=== PATIENT | male | born 1960 | race African-American/Black ===

== ENCOUNTER 2019-07-14 11:51 | Emergency (ER) | payer SELFPAY ==
[2019-07-14 13:22] VITALS: BP 142/83; TEMP 98.6; O2SAT 99
--- NOTE | 2019-07-20 13:15 | EDPHYS ---
Physician Documentation [facility] Name: Jorge Ramírez Age: 59 yrs Sex: Male : 1960 Arrival Date: 07/14/2019 Time: 11:54 Bed 8 Private MD: ED Physician Sherif Mendoza HPI: 07/13 12:54 This 59 yrs old Black Male presents to ER via Ambulatory with complaints of Swollen rn Glands, Sore Throat. 12:54 The patient presents with sore throat. The patient describes throat pain as raw. rn 12:55 Onset: The symptoms/episode began/occurred 2 day(s) ago. Severity of symptoms: At their rn worst the symptoms were mild, in the emergency department the symptoms are unchanged. Modifying factors: The symptoms are alleviated by nothing, the symptoms are aggravated by nothing, Patient's oral intake status: good. Associated signs and symptoms: Pertinent negatives cough, fever, flu-like symptoms, rhinorrhea, shortness of breath. The patient has not experienced similar symptoms in the past. The patient has not recently seen a physician. Reports sore throat for 2 days, no fever, no trauma, no trouble with moving neck or swallowing, no runny nose. No sick contacts. No sob or cough.. Historical: - Allergies: 12:06 No Known Allergies; aa5 - Home Meds: 12:06 None [Active]; aa5 - PMHx: 12:06 None; aa5 - Immunization history:: Flu vaccine is not up to date. - Social history:: Smoking status: Patient reports the use of cigarette tobacco products, cigars. - Family history:: not pertinent. - Hospitalizations: : No recent hospitalization is reported. ROS: 12:55 Constitutional: Negative for fever, chills, and weight loss, Eyes: Negative for injury, rn pain, redness, and discharge, ENT: + sore throat Neck: Negative for injury Cardiovascular: Negative for chest pain, palpitations, and edema, Respiratory: Negative for shortness of breath, cough, wheezing, and pleuritic chest pain, Abdomen/GI: Negative for abdominal pain, nausea, vomiting, diarrhea, and constipation, MS/Extremity: Negative for injury and deformity, Neuro: Negative for headache, weakness, numbness, tingling, and seizure. Exam: 12:55 Constitutional: This is a well developed, well nourished patient who is awake, alert, rn and in no acute distress. Head/Face: Normocephalic, atraumatic. Eyes: Pupils equal round and reactive to light, extra-ocular motions intact. Lids and lashes normal. Conjunctiva and sclera are non-icteric and not injected. Cornea within normal limits. Periorbital areas with no swelling, redness, or edema. ENT: MMM, no oral swelling, no stridor Neck: Trachea midline, no crepitus, + bilateral cervical LAD, no meningismus, no pain with extension or flexion of neck Cardiovascular: Regular rate and rhythm. No pulse deficits. Respiratory: No increased work of breathing, no retractions or nasal flaring. Skin: Warm, dry with normal turgor. Normal color with no rashes, no lesions, and no evidence of cellulitis. MS/ Extremity: Pulses equal, no cyanosis. Neurovascular intact. Full, normal range of motion. Equal circumference. Neuro: Awake and alert, GCS 15 Vital Signs: 11:58 BP 142 / 83; Pulse 85; Resp 18 S; Temp 98.6(O); Pulse Ox 99% on R/A; Weight 120.2 kg aa5 (R); Height 5 ft. 8 in. (172.72 cm) (R); Pain 3/10; 13:00 BP 134 / 78; Pulse 81; Resp 18; Temp 98.2; Pulse Ox 99% on R/A; ph 11:58 Body Mass Index 40.29 (120.20 kg, 172.72 cm) aa5 MDM: 12:09 Patient medically screened. rn 12:55 Differential diagnosis: gastroesophageal reflux disease, group A strep tonsillitis, rn influenza, laryngitis, pharyngitis, tonsillitis, upper respiratory infection, viral syndrome. Data reviewed: vital signs, nurses notes, lab test result(s), and as a result, I will discharge patient. Counseling: I had a detailed discussion with the patient and/or guardian regarding: the historical points, exam findings, and any diagnostic results supporting the discharge/admit diagnosis, lab results, the need for outpatient follow up, to return to the emergency department if symptoms worsen or persist or if there are any questions or concerns that arise at home. Special discussion: I discussed with the patient/guardian in detail that at this point there is no indication for admission to the hospital. It is understood, however, that if the symptoms persist or worsen the patient needs to return immediately for re-evaluation. ED course: Neg strep/flu, will dc home with steroids and abx for swelling/lymphadenopathy, no signs of retropharyngeal abscess/meningitis. . 07/13 12:13 Order name: Strep; Complete Time: 12:54 rn 07/13 12:13 Order name: Flu; Complete Time: 12:54 rn 07/13 12:52 Order name: Throat Culture EDMS Administered Medications: No medications were administered Disposition: 07/14/19 13:00 Discharged to Home. Impression: Acute lymphadenitis. - Condition is Stable. - Discharge Instructions: Pharyngitis, Lymphadenopathy. - Prescriptions for Augmentin 875- 125 mg Oral Tablet - take 1 tablet by ORAL route every 12 hours for 10 days; 20 tablet. Medrol (Javier) 4 mg Oral Tablets, Dose Pack - take 1 tablet by ORAL route as directed - follow package instructions; 1 packet. - Medication Reconciliation Form, Thank You Letter, Antibiotic Education, Prescription Opioid Use form. - Follow up: Private Physician; When: As needed; Reason: Recheck today's complaints, Re-evaluation by your physician. - Problem is new. - Symptoms are unchanged. Signatures: Dispatcher [employer] EDMS Sherif Mendoza MD MD rn Calderon, Audri, RN RN aa5 Karrie Morales RN RN ph Corrections: (The following items were deleted from the chart) 13:17 13:00 07/14/2019 13:00 Discharged to Home. Impression: Acute lymphadenitis. Condition ph is Stable. Forms are Medication Reconciliation Form, Thank You Letter, Antibiotic Education, Prescription Opioid Use. Follow up: Private Physician; When: As needed; Reason: Recheck today's complaints, Re-evaluation by your physician. Problem is new. Symptoms are unchanged. rn
--- NOTE | 2019-07-20 13:15 | ER ---
Nurse's Notes [facility] Name: Jorge Ramírez Age: 59 yrs Sex: Male : 1960 Arrival Date: 07/14/2019 Time: 11:54 Bed 8 Private MD: Diagnosis: Acute lymphadenitis Presentation: 07/13 11:58 Chief complaint: Patient states: sore throat x 2 days ago. Denies cough, denies fever. aa5 11:58 Coronavirus screen: Proceed with normal triage. Patient denies a cough. Patient denies aa5 shortness of breath or difficulty breathing. Patient denies measured and/or subjective temperature greater than 100.4F prior to today's visit. Patient denies travel on a cruise ship or to a country the [facility] currently lists as an affected area. Patient denies contact with known and/or suspected case of COVID-19. Ebola Screen: Patient negative for fever greater than or equal to 101.5 degrees Fahrenheit, and additional compatible Ebola Virus Disease symptoms. Initial Sepsis Screen: Does the patient meet any 2 criteria? No. Patient's initial sepsis screen is negative. Does the patient have a suspected source of infection? No. Patient's initial sepsis screen is negative. Risk Assessment: Do you want to hurt yourself or someone else? Patient reports no desire to harm self or others. Onset of symptoms was June 2019. 11:58 Acuity: EDDIE 4 aa5 11:58 Method Of Arrival: Ambulatory aa5 Historical: - Allergies: 12:06 No Known Allergies; aa5 - Home Meds: 12:06 None [Active]; aa5 - PMHx: 12:06 None; aa5 - Immunization history:: Flu vaccine is not up to date. - Social history:: Smoking status: Patient reports the use of cigarette tobacco products, cigars. - Family history:: not pertinent. - Hospitalizations: : No recent hospitalization is reported. Screenin:15 Abuse screen: Denies threats or abuse. Denies injuries from another. Nutritional ph screening: No deficits noted. Tuberculosis screening: No symptoms or risk factors identified. Fall Risk None identified. Assessment: 12:30 General: Appears in no apparent distress. comfortable, well groomed. General: Behavior ph is calm, cooperative, appropriate for age, Denies fever. Pain: Complains of pain in throat. Neuro: Level of Consciousness is awake, alert, obeys commands, Oriented to person, place, time, situation. Cardiovascular: Capillary refill < 3 seconds in bilateral fingers Patient's skin is warm and dry. Respiratory: Airway is patent Respiratory effort is even, unlabored, Respiratory pattern is regular, symmetrical, Breath sounds are clear bilaterally. Denies cough, shortness of breath. GI: No signs and/or symptoms were reported involving the gastrointestinal system. EENT: Throat is reddened has enlarged tonsils Reports pain when swallowing. Derm: Skin is intact, is healthy with good turgor, Skin is pink, warm \T\ dry. Musculoskeletal: Circulation, motion, and sensation intact. Range of motion: intact in all extremities. Vital Signs: 11:58 BP 142 / 83; Pulse 85; Resp 18 S; Temp 98.6(O); Pulse Ox 99% on R/A; Weight 120.2 kg aa5 (R); Height 5 ft. 8 in. (172.72 cm) (R); Pain 3/10; 13:00 BP 134 / 78; Pulse 81; Resp 18; Temp 98.2; Pulse Ox 99% on R/A; ph 11:58 Body Mass Index 40.29 (120.20 kg, 172.72 cm) aa5 ED Course: 11:54 Patient arrived in ED. as 11:58 Arm band placed on Patient placed in an exam room, on a stretcher. aa5 12:06 Triage completed. aa5 12:09 Sherif Mendoza MD is Attending Physician. rn 12:14 Karrie Morales, DANK is Primary Nurse. ph 12:15 Patient has correct armband on for positive identification. Bed in low position. Call ph light in reach. Side rails up X 1. Pulse ox on. NIBP on. Door closed. Noise minimized. Warm blanket given. 13:17 No provider procedures requiring assistance completed. Patient did not have IV access ph during this emergency room visit. Administered Medications: No medications were administered Outcome: 13:00 Discharge ordered by . rn 13:17 Discharged to home ambulatory. ph 13:17 Condition: good 13:17 Discharge instructions given to patient, Instructed on discharge instructions, follow up and referral plans. medication usage, Demonstrated understanding of instructions, follow-up care, medications, Prescriptions given X 2. 13:17 Patient left the ED. ph Signatures: Ana Hooper Roman, MD MD rn Aimee Ellsworth RN RN aa5 Karrie Morales RN RN ph
== END 2019-07-14 13:17 | disposition home or self-care (01) ==
LOC: ER 11:51
DX: L04.9 Acute lymphadenitis, unspecified (principal); Z72.0 Tobacco use
CPT/HCPCS: 87070; 87081; 87804; 99283

== ENCOUNTER 2019-08-23 08:54 | Emergency (ER) | payer SELFPAY ==
[2019-08-23] MEDS ORDERED: dexAMETHasone 10 MG/ML VIAL ONE (09:28)
--- NOTE | 2019-08-23 10:09 | ER ---
Nurse's Notes [facility] Name: Jorge Ramírez Age: 59 yrs Sex: Male : 1960 Arrival Date: 08/23/2019 Time: 08:58 Bed 5 Private MD: Diagnosis: Acute pharyngitis Presentation: 08/22 09:07 Chief complaint: Patient states: knot in throat for about a month and a half. Seen here dm5 previously and given antibiotics and steriods and that seemed to help. Coronavirus screen: Proceed with normal triage. Patient denies a cough. Patient denies shortness of breath or difficulty breathing. Patient denies measured and/or subjective temperature greater than 100.4F prior to today's visit. Patient denies travel on a cruise ship or to a country the [facility] currently lists as an affected area. Patient denies contact with known and/or suspected case of COVID-19. Ebola Screen: Patient negative for fever greater than or equal to 101.5 degrees Fahrenheit, and additional compatible Ebola Virus Disease symptoms Patient denies exposure to infectious person. Patient denies travel to an Ebola-affected area in the 21 days before illness onset. No symptoms or risks identified at this time. Initial Sepsis Screen: Does the patient meet any 2 criteria? No. Patient's initial sepsis screen is negative. Does the patient have a suspected source of infection? Yes: Other: tonsils?. Risk Assessment: Do you want to hurt yourself or someone else? Patient reports no desire to harm self or others. Onset of symptoms was July 2019. 09:07 Method Of Arrival: Ambulatory dm5 09:07 Acuity: EDDIE 4 dm5 Triage Assessment: 09:40 General: Appears in no apparent distress. uncomfortable, Behavior is calm, cooperative. dm5 Pain: Complains of pain in throat Pain currently is 2 out of 10 on a pain scale. Neuro: Level of Consciousness is awake, alert, obeys commands, Oriented to person, place, time. Respiratory: Airway is patent Respiratory effort is even, unlabored. Derm: Skin is pink, warm \T\ dry. Historical: - Allergies: 10:36 No Known Allergies; ph - Immunization history:: Adult Immunizations unknown. - Social history:: Smoking status: unknown. Screenin:35 Abuse screen: Denies threats or abuse. Denies injuries from another. Nutritional ph screening: No deficits noted. Tuberculosis screening: No symptoms or risk factors identified. Fall Risk None identified. Assessment: 09:30 General: Appears in no apparent distress. comfortable, obese, well groomed, Behavior is ph calm, cooperative, appropriate for age, Denies fever. Pain: Complains of pain in throat. Neuro: Level of Consciousness is awake, alert, obeys commands, Oriented to person, place, time, situation. Cardiovascular: Capillary refill < 3 seconds in bilateral fingers Patient's skin is warm and dry. Respiratory: Reports cough that is productive, Airway is patent Respiratory effort is even, unlabored, Respiratory pattern is regular, symmetrical, Denies shortness of breath. GI:. EENT: Reports pain when swallowing. Derm: Skin is intact, is healthy with good turgor, Skin is pink, warm \T\ dry. Musculoskeletal: Circulation, motion, and sensation intact. Range of motion: intact in all extremities. Vital Signs: 09:07 BP 111 / 69; Pulse 95; Resp 18; Temp 97.6; Pulse Ox 97% on R/A; Pain 2/10; dm5 ED Course: 08:58 Patient arrived in ED. fj1 09:01 Waldemar Avalos, ROGER is PHCP. pm1 09:01 Jarocho Fuentes MD is Attending Physician. pm1 09:07 Antonia Prado, RN is Primary Nurse. dm5 09:08 Triage completed. dm5 09:18 Flu Sent. kj1 09:18 Strep Sent. kj1 10:35 No provider procedures requiring assistance completed. Patient did not have IV access ph during this emergency room visit. 10:35 Patient has correct armband on for positive identification. Bed in low position. Call ph light in reach. Side rails up X 1. Pulse ox on. NIBP on. Door closed. Noise minimized. Warm blanket given. 10:36 Arm band placed on. ph Administered Medications: 09:22 Drug: Decadron 10 mg Route: IM; Site: right deltoid; dm5 10:32 Follow up: Response: No adverse reaction ph Outcome: 10:09 Discharge ordered by . pm1 10:36 Discharged to home ambulatory. ph 10:36 Condition: good 10:36 Discharge instructions given to patient, Instructed on discharge instructions, follow up and referral plans. medication usage, Demonstrated understanding of instructions, follow-up care, medications, Prescriptions given X 3. 10:37 Patient left the ED. ph Signatures: Antonia Prado RN RN dm5 Karrie Morales RN RN ph Waldemar Avalos, AIRCRAFT [employer]OL [employer]KER [employer]KER pm1 Hema, Rona kj1 Stan Balderrama fj1
--- NOTE | 2019-08-23 10:09 | EDPHYS ---
Physician Documentation [facility] Name: Jorge Ramírez Age: 59 yrs Sex: Male : 1960 Arrival Date: 08/23/2019 Time: 08:58 Bed 5 Private MD: ED Physician Jarocho Fuentes HPI: 08/22 09:26 This 59 yrs old Black Male presents to ER via Ambulatory with complaints of SWELLING OR pm1 KNOT IN THE THROAT AREA. 09:26 The patient presents with sore throat. The patient describes throat pain as scratchy. pm1 Onset: The symptoms/episode began/occurred 1.5 month(s) ago. Severity of symptoms: in the emergency department the symptoms are unchanged. Modifying factors: The symptoms are alleviated by prescription meds, steroid for the same symptoms in June 2019 improved his symptoms, but once the medications was finished it returned. Associated signs and symptoms: Pertinent negatives chest pain, chills, earache, fever, flu-like symptoms, nausea, shortness of breath, vomiting. The patient has experienced a previous episode, and the symptoms today are exactly the same, Since June 2019. Historical: - Allergies: 10:36 No Known Allergies; ph - Immunization history:: Adult Immunizations unknown. - Social history:: Smoking status: unknown. ROS: 09:26 Constitutional: Negative for fever, chills, and weight loss, Eyes: Negative for injury, pm1 pain, redness, and discharge. 09:26 Neck: Negative for injury, pain, and swelling, Cardiovascular: Negative for chest pain, palpitations, and edema. 09:26 Abdomen/GI: Negative for abdominal pain, nausea, vomiting, diarrhea, and constipation, Back: Negative for injury and pain, : Negative for injury, bleeding, discharge, and swelling, MS/Extremity: Negative for injury and deformity, Skin: Negative for injury, rash, and discoloration, Neuro: Negative for headache, weakness, numbness, tingling, and seizure. 09:26 ENT: Positive for sore throat, Negative for ear pain. 09:26 Respiratory: Positive for cough, Negative for shortness of breath, sputum production, wheezing. Exam: 09:26 Constitutional: This is a well developed, well nourished patient who is awake, alert, pm1 and in no acute distress. Head/Face: Normocephalic, atraumatic. Eyes: Pupils equal round and reactive to light, extra-ocular motions intact. Lids and lashes normal. Conjunctiva and sclera are non-icteric and not injected. Cornea within normal limits. Periorbital areas with no swelling, redness, or edema. 09:26 Neck: Trachea midline, no thyromegaly or masses palpated, and no cervical lymphadenopathy. Supple, full range of motion without nuchal rigidity, or vertebral point tenderness. No Meningismus. Chest/axilla: Normal chest wall appearance and motion. Nontender with no deformity. No lesions are appreciated. 09:26 Back: No spinal tenderness. No costovertebral tenderness. Full range of motion. Skin: Warm, dry with normal turgor. Normal color with no rashes, no lesions, and no evidence of cellulitis. MS/ Extremity: Pulses equal, no cyanosis. Neurovascular intact. Full, normal range of motion. 09:26 ENT: External ear(s): are unremarkable, Ear canal(s): are normal, TM's: are normal, Nose: is normal, Mouth: is normal, Posterior pharynx: Tonsils: bilaterally enlarged, with erythema, no exudate, no ulcerations, erythema, that is mild, peritonsillar mass, is not appreciated, pooling of secretions, is not appreciated. 09:26 Cardiovascular: Exam negative for acute changes, Rate: normal, Rhythm: regular, Pulses: no pulse deficits are appreciated. 09:26 Respiratory: Exam negative for acute changes, respiratory distress, shortness of breath. 09:26 Abdomen/GI: Exam negative for acute changes, Inspection: abdomen appears normal, Palpation: abdomen is soft and non-tender, in all quadrants. 09:26 Neuro: Exam negative for acute changes, Orientation: is normal, Motor: is normal, moves all fours, Sensation: is normal, no obvious gross deficits. Vital Signs: 09:07 BP 111 / 69; Pulse 95; Resp 18; Temp 97.6; Pulse Ox 97% on R/A; Pain 2/10; dm5 MDM: 09:04 Patient medically screened. pm1 09:10 Data reviewed: vital signs. Data interpreted: Pulse oximetry: on room air is 97 %. pm1 Interpretation: normal. 10:08 Counseling: I had a detailed discussion with the patient and/or guardian regarding: the pm1 historical points, exam findings, and any diagnostic results supporting the discharge/admit diagnosis, lab results, the need for outpatient follow up, to return to the emergency department if symptoms worsen or persist or if there are any questions or concerns that arise at home. 10:23 ED course: REGROOVER Aware reviewed. Patient requested a cough medication. pm1 08/22 09:10 Order name: Strep; Complete Time: 10:08 pm1 08/22 09:10 Order name: Flu; Complete Time: 10: pm1 08/22 09:48 Order name: Throat Culture EDMS Administered Medications: 09:22 Drug: Decadron 10 mg Route: IM; Site: right deltoid; dm5 10:32 Follow up: Response: No adverse reaction ph Disposition: 08/23/19 10:09 Discharged to Home. Impression: Acute pharyngitis. - Condition is Stable. - Discharge Instructions: Pharyngitis. - Prescriptions for Augmentin 875- 125 mg Oral Tablet - take 1 tablet by ORAL route every 12 hours for 10 days; 20 tablet. Medrol (Javier) 4 mg Oral Tablets, Dose Pack - take 1 tablet by ORAL route as directed - follow package instructions; 1 packet. Guaifenesin AC 10- 100 mg/5 mL Oral Liquid - take 10 milliliter by ORAL route every 4 hours As needed; 240 milliliter. - Medication Reconciliation Form, Thank You Letter, Antibiotic Education, Prescription Opioid Use form. - Follow up: Emergency Department; When: As needed; Reason: Worsening of condition. Follow up: Private Physician; When: 2 - 3 days; Reason: Recheck today's complaints, Continuance of care, Re-evaluation by your physician. - Problem is new. - Symptoms have improved. Signatures: Dispatcher [employer] [facility] Antonia Prado RN RN dm5 Karrie Morales RN RN ph Waldemar Avalos, ROGER [employer]STRU[employer] pm1 Corrections: (The following items were deleted from the chart) 10:37 10:09 08/23/2019 10:09 Discharged to Home. Impression: Acute pharyngitis. Condition is ph Stable. Forms are Medication Reconciliation Form, Thank You Letter, Antibiotic Education, Prescription Opioid Use. Follow up: Emergency Department; When: As needed; Reason: Worsening of condition. Follow up: Private Physician; When: 2 - 3 days; Reason: Recheck today's complaints, Continuance of care, Re-evaluation by your physician. Problem is new. Symptoms have improved. pm1
[2019-08-23 10:41] VITALS: BP 111/69; TEMP 97.6; O2SAT 97
== END 2019-08-23 10:37 | disposition home or self-care (01) ==
LOC: ER 08:54
DX: J02.9 Acute pharyngitis, unspecified (principal); R05 Cough
CPT/HCPCS: 87070; 87081; 87804; 96372; 99284; J1100

== ENCOUNTER 2019-12-14 12:47 | Emergency (ER) | payer SELFPAY ==
--- OUTSIDE RECORDS SUMMARY | 2019-12-14 12:52 | XMS REPORT | Clinical Summary ---
:1960 Author Organization [facility] Address [address] [place] [address] Care Team Providers Name Role Phone Unavailable Primary Care Provider Unavailable Allergies No Known Allergies Medications Medication Sig Dispensed Refills Start Date End Date Status codeine-guaifenesin Take 5 mLs by 120 mL 0 09/03/201909/12 (GUAIFENESIN AC) mouth every 4 10-100 mg/5 mL liquid (four) hours as needed for Cough for up to 10 days. Max Daily Amount: 30 mLs dexAMETHasone Take 1 tablet 6 tablet 0 09/04/2019 09/10/2019 (DECADRON) 6 MG (6 mg total) by tablet mouth daily for 6 days. sucralfate (CARAFATE) Take 10 mLs (1 420 mL 0 09/03/2019 100 mg/mL suspension g total) by mouth every 6 (six) hours for 30 days. doxycycline (MONODOX) Take 1 capsule 14 capsule 0 09/03/2019 0 09/10/2019 100 MG capsule (100 mg total) by mouth 2 (two) times daily for 7 days. Active Problems Problem Noted Date Pneumonia 08/29/2019 Encounters Date Type Specialty Care Team Description 08/31/2019 Travel 08/29/2019 - Hospital General Internal Jimenez Ferrer MD Pneumonia of both lungs due to infectiou s organism, unspecified part of lung; 09/04/2019 Encounter Medicine Javier Blackburn Acute respira tory distress syndrome (ARDS) due to COVID-19 virus ([facility]); MD Papi ARDS (adult respiratory distress syndrom e) ([facility]); Kali Ni Neck memo n; MD Willard Elevated blood sugar; Erika Lozoya, Acute hy poxemic respiratory failure ([facility]) 08/29/2019 Telephone Critical Care Jimenez Ferrer MD Peer-to-P eer Call Medicine after 12/13/2018 Social History Tobacco Use Types Packs/Day Years Used Date Never Smoker Sex Assigned at Date Recorded Not on file Last Filed Vital Signs Vital Sign Reading Time Taken Comments Blood Pressure 136/86 09/04/2019 8:06 AM CDT Pulse 75 09/04/2019 8:06 AM CDT Temperature 36.3 C (97.3 F) 09/04/2019 5:46 AM CDT Respiratory Rate 18 09/04/2019 8:06 AM CDT Oxygen Saturation 98% 09/04/2019 8:06 AM CDT Inhaled Oxygen Concentration 30% 08/31/2019 12:30 PM CDT Weight 124.5 kg (274 lb 7.6 oz) 09/04/2019 5:46 AM CDT Height 172.7 cm (5' 8") 08/29/2019 8:00 PM CDT Body Mass Index 41.73 08/29/2019 8:00 PM CDT Plan of Treatment Health Maintenance Due Date Last Done Comments COLON CANCER SCREENING COLONOSCOPY 1960 LIPID PANEL 01/29/1995 INFLUENZA VACCINE (#1) 2019 Procedures Procedure Name Priority Date/Time Associated Comments Diagnosis REPORT OF PROCEDURE - 09/07/2019 2:10 ENDOSCOPY SCAN PM CDT RHYTHM STRIP - SCAN 09/07/2019 2:10 PM CDT POCT-GLUCOSE METER Routine 09/03/2019 8:16 Resul ts for this PM CDT procedure are i n the results section. POCT-GLUCOSE METER Routine 09/03/2019 5:31 Resul ts for this PM CDT procedure are i n the results section. SARS-COV2/RT-PCR ([facility] & Routine 09/03/2019 11:30 Results for this REF LABS) AM CDT procedure are i n the results section. POCT-GLUCOSE METER Routine 09/03/2019 11:24 Resul ts for this AM CDT procedure are i n the results section. POCT-GLUCOSE METER Routine 09/03/2019 8:03 Resul ts for this AM CDT procedure are i n the results section. POCT-GLUCOSE METER Routine 09/02/2019 11:05 Resul ts for this PM CDT procedure are i n the results section. POCT-GLUCOSE METER Routine 09/02/2019 4:39 Resul ts for this PM CDT procedure are i n the results section. POCT-GLUCOSE METER Routine 09/02/2019 11:40 Resul ts for this AM CDT procedure are i n the results section. POCT-GLUCOSE METER Routine 09/02/2019 8:06 Resul ts for this AM CDT procedure are i n the results section. (CELLAVISION MANUAL DIFF) Routine 09/02/2019 4:48 Results for this AM CDT procedure are i n the results section. CBC W/PLT COUNT & AUTO Routine 09/02/2019 4:48 R esults for this DIFFERENTIAL AM CDT procedure are i n the results section. COMPREHENSIVE METABOLIC Routine 09/02/2019 4:48 Results for this PANEL AM CDT procedure are i n the results section. CBC W/PLT COUNT & AUTO Routine 09/02/2019 4:48 R esults for this DIFFERENTIAL AM CDT procedure are i n the results section. POCT-GLUCOSE METER Routine 09/01/2019 9:31 Resul ts for this PM CDT procedure are i n the results section. SARS-COV2/RT-PCR ([facility] & Routine 09/01/2019 2:07 Results for this REF LABS) PM CDT procedure are i n the results section. POCT-GLUCOSE METER Routine 09/01/2019 12:10 Resul ts for this PM CDT procedure are i n the results section. POCT-GLUCOSE METER Routine 09/01/2019 8:47 Resul ts for this AM CDT procedure are i n the results section. MAGNESIUM STAT 09/01/2019 6:36 Results for this AM CDT procedure are i n the results section. COMPREHENSIVE METABOLIC Routine 09/01/2019 6:36 Results for this PANEL AM CDT procedure are i n the results section. CBC W/PLT COUNT & AUTO Routine 09/01/2019 5:07 R esults for this DIFFERENTIAL AM CDT procedure are i n the results section. CBC W/PLT COUNT & AUTO Routine 09/01/2019 5:07 R esults for this DIFFERENTIAL AM CDT procedure are i n the results section. POCT-GLUCOSE METER Routine 08/31/2019 10:49 Resul ts for this PM CDT procedure are i n the results section. POCT-GLUCOSE METER Routine 08/31/2019 4:21 Resul ts for this PM CDT procedure are i n the results section. POCT-GLUCOSE METER Routine 08/31/2019 11:14 Resul ts for this AM CDT procedure are i n the results section. POCT-GLUCOSE METER Routine 08/31/2019 8:43 Resul ts for this AM CDT procedure are i n the results section. CBC W/PLT COUNT & AUTO Routine 08/31/2019 3:47 R esults for this DIFFERENTIAL AM CDT procedure are i n the results section. HEMOGLOBIN A1C Routine 08/31/2019 3:47 Results f or this AM CDT procedure are i n the results section. MAGNESIUM STAT 08/31/2019 3:47 Results for this AM CDT procedure are i n the results section. PROCALCITONIN Routine 08/31/2019 3:47 Results fo r this AM CDT procedure are i n the results section. COMPREHENSIVE METABOLIC Routine 08/31/2019 3:47 Results for this PANEL AM CDT procedure are i n the results section. CBC W/PLT COUNT & AUTO Routine 08/31/2019 3:47 R esults for this DIFFERENTIAL AM CDT procedure are i n the results section. C-REACTIVE PROTEIN Routine 08/31/2019 3:47 Resul ts for this AM CDT procedure are i n the results section. PROTHROMBIN TIME/INR Routine 08/31/2019 3:46 Res ults for this AM CDT procedure are i n the results section. FERRITIN Routine 08/31/2019 3:46 Results for this AM CDT procedure are i n the results section. D-DIMER Routine 08/31/2019 3:46 Results for this AM CDT procedure are i n the results section. POCT-GLUCOSE METER Routine 08/30/2019 9:22 Resul ts for this PM CDT procedure are i n the results section. POCT-GLUCOSE METER Routine 08/30/2019 4:49 Resul ts for this PM CDT procedure are i n the results section. 2D ECHO W/ DOPPLER Routine 08/30/2019 11:53 Resul ts for this (CW/PW/COLOR) AM CDT procedure are in the results section. POCT-GLUCOSE METER Routine 08/30/2019 11:28 Resul ts for this AM CDT procedure are i n the results section. SARS-COV2/RT-PCR ([facility] & STAT 08/30/2019 6:58 Results for this REF LABS) AM CDT procedure are i n the results section. URINALYSIS W/ REFLEX URINE STAT 08/30/2019 3:29 Results for this CULTURE AM CDT procedure are i n the results section. LEGIONELLA URINE ANTIGEN Routine 08/30/2019 3:28 Results for this AM CDT procedure are i n the results section. STREP PNEUMONIAE ANTIGEN Routine 08/30/2019 3:28 Results for this AM CDT procedure are i n the results section. (CELLAVISION MANUAL DIFF) Routine 08/30/2019 3:25 Results for this AM CDT procedure are i n the results section. CBC W/PLT COUNT & AUTO Routine 08/30/2019 3:25 R esults for this DIFFERENTIAL AM CDT procedure are i n the results section. BLOOD GAS, ARTERIAL Routine 08/30/2019 3:25 Resu lts for this AM CDT procedure are i n the results section. MAGNESIUM STAT 08/30/2019 3:25 Results for this AM CDT procedure are i n the results section. COMPREHENSIVE METABOLIC Routine 08/30/2019 3:25 Results for this PANEL AM CDT procedure are i n the results section. CBC W/PLT COUNT & AUTO Routine 08/30/2019 3:25 R esults for this DIFFERENTIAL AM CDT procedure are i n the results section. CREATINE KINASE (CK) Routine 08/30/2019 3:25 Res ults for this AM CDT procedure are i n the results section. POCT-GLUCOSE METER Routine 08/29/2019 7:04 Resul ts for this PM CDT procedure are i n the results section. BLOOD CULTURE Routine 08/29/2019 6:05 Results fo r this PM CDT procedure are i n the results section. T4, FREE Routine 08/29/2019 5:51 Results for this PM CDT procedure are i n the results section. B-TYPE NATRIURETIC FACTOR STAT 08/29/2019 5:51 Results for this (BNP) PM CDT procedure are i n the results section. TSH/FREE T4 IF INDICATED Routine 08/29/2019 5:51 Results for this PM CDT procedure are i n the results section. HIV-1 ANTIGEN WITH HIV-1/2 Routine 08/29/2019 5:51 Results for this ANTIBODY PM CDT procedure are i n the results section. BLOOD CULTURE Routine 08/29/2019 5:36 Results fo r this PM CDT procedure are i n the results section. THROMBOELASTOGRAPH (TEG) Routine 08/29/2019 5:35 Results for this PM CDT procedure are i n the results section. (CELLAVISION MANUAL DIFF) Routine 08/29/2019 5:34 Results for this PM CDT procedure are i n the results section. CBC W/PLT COUNT & AUTO Routine 08/29/2019 5:34 R esults for this DIFFERENTIAL PM CDT procedure are i n the results section. MAGNESIUM Add-On 08/29/2019 5:34 Results for this PM CDT procedure are i n the results section. C-REACTIVE PROTEIN Routine 08/29/2019 5:34 Resul ts for this PM CDT procedure are i n the results section. FIBRINOGEN Routine 08/29/2019 5:34 Results for this PM CDT procedure are i n the results section. LACTIC ACID, VENOUS Routine 08/29/2019 5:34 Resu lts for this PM CDT procedure are i n the results section. PROTHROMBIN TIME/INR Routine 08/29/2019 5:34 Res ults for this PM CDT procedure are i n the results section. D-DIMER Routine 08/29/2019 5:34 Results for this PM CDT procedure are i n the results section. TROPONIN I Routine 08/29/2019 5:34 Results for this PM CDT procedure are i n the results section. PROCALCITONIN Routine 08/29/2019 5:34 Results fo r this PM CDT procedure are i n the results section. FERRITIN Routine 08/29/2019 5:34 Results for this PM CDT procedure are i n the results section. LACTATE DEHYDROGENASE Routine 08/29/2019 5:34 Re sults for this (LDH) PM CDT procedure are i n the results section. COMPREHENSIVE METABOLIC Routine 08/29/2019 5:34 Results for this PANEL PM CDT procedure are i n the results section. CBC W/PLT COUNT & AUTO Routine 08/29/2019 5:34 R esults for this DIFFERENTIAL PM CDT procedure are i n the results section. RAPID INFLUENZA A&B SCREEN Routine 08/29/2019 5:17 Results for this PM CDT procedure are i n the results section. RESPIRATORY PANEL [facility] Routine 08/29/2019 5:17 R esults for this PM CDT procedure are i n the results section. SARS-COV2/RT-PCR ([facility] & STAT 08/29/2019 5:17 Results for this REF LABS) PM CDT procedure are i n the results section. XR CHEST 1 VIEW STAT 08/29/2019 5:07 Results for this PORTABLE/BEDSIDE PM CDT procedure a re in the results section. after 12/13/2018 Results EKG-SCANNED (09/07/2019 2:10 PM CDT) Narrative Performed At This result has an attachment that is no t available. RHYTHM STRIP - SCAN (09/07/2019 2:10 PM CDT) Narrative Performed At This result has an attachment that is no t available. POC-Glucose meter (09/03/2019 8:16 PM CDT)Only the most recent of19 results within the time period is included. POC-Glucose Meter 125 (H)Comment: 70 - 110 mg/dL [facility] : TESTED AT [address], [address]: Cyber Operator/Technic ketan ID = [id number] for LAVELLE BAKER Specimen Blood Performing Organization Address City/State/Zipcode Phone Number [address] [phone] CENTER SARS-CoV2/RT-PCR (Symptomatic ONLY) (09/03/2019 11:30 AM CDT)Only the most recent of4 resultswithin the time period is included. Pathologist [facility] SARS-COV2/RT-PCR Negative Not Detected, [facility] Negative [facility] SARS-COV-2 [facility] PERFORMING LAB [facility] Specimen Other - Nasopharyngeal wall structure (b francoise structure) Narrative Performed At Negative results do not preclude SARS-CoV-2 [facility] infection and should not be used as the sole basis for patient management decisions. Negative results must be combined with clinical observations, patient history, and epidemiological information. A false negative result may occur if a specimen is improperly collected, transported or handled. The limit of detection for this assay is 250 copies/mL. This SARS CoV-2 test is a rapid, real-time RT-PCR test intended for the qualitative detection of nucleic acid from SARS-CoV-2 in a nasopharyngeal swab specimen collected from individuals suspected of COVID-19 by their healthcare provider. This test has not been Food and Drug Administration (FDA) cleared or approved and has been authorized by FDA under an Emergency Use Authorization (EUA). This EUA will be effective until the declaration that circumstances exist justifying the authorization of the emergency use of in vitro diagnostic tests for detection and/or diagnosis of COVID-19 is terminated under Section 564(b)(2) of the Act or the EUA is revoked under Section 564(g) of the Act. Fact Sheet for Healthcare Providers: https://www.[employer]/Documents/Xpert%20Xpre ss%20SARS%20CoV-2/Fact%20Sheets/3023802%20SAR S-COV-2%20HEALTHCARE%20PROVIDERS%20FACT%20SHEE T.pdf Fact Sheet for Healthcare Patients: https://www.[employer]/Documents/Xpert%20Xpre ss%20SARS%20CoV-2/Fact%20Sheets/3023801%20SAR S-COV-2%20PATIENT%20FACT%20SHEET.pdf Performing Laboratory: [address] [place] [address] Performing Organization Address City/State/[place] [address] CENTER Manual Differential (09/02/2019 4:48 AM CDT)Only the most recent of3 results within the time period is included. Pathologist Sig nature % Neutros 80 % [facility] % Lymphs 17 % [facility] % Monos 1 % [facility] % Eos 1 % [facility] % Myelo 1 (H) 0 - 0 % [facility] # Neutros 10.96 (H) 1.78 - 5.38 K/ul [facility] # Lymphs 2.33 1.32 - 3.57 K/ul [facility] # Monos 0.14 (L) 0.30 - 0.82 K/uL [facility] # Eos 0.14 0.04 - 0.54 K/uL [facility] # Myelo 0.14 (H) 0.00 - 0.00 K/uL [facility] Total Counted 100 [facility] RBC Morphology Normal [facility] Smudge Cells Present [facility] Giant Platelet Present [facility] Platelet Conc Increased [facility] Specimen Blood Narrative Performed At Cyber Operator ID - Opal Clive [facility] User comments: Slide comments: Performing Organization Address City/State/Zipcode Phone Number [facility] [address] [place] [address] CENTER CBC with platelet count + automated diff (09/02/2019 4:48 AM CDT)Only the most recent of5 resultswithin the time period is included. Pathologist Sig nature WBC 13.7 (H) 3.5 - 10.5 K/L [facility] RBC 4.23 (L) 4.63 - 6.08 M/L [facility] Hemoglobin 11.5 (L) 13.7 - 17.5 GM/DL [facility] Hematocrit 37.7 (L) 40.1 - 51.0 % [facility] MCV 89.1 79.0 - 92.2 fL [facility] MCH 27.2 25.7 - 32.2 pg [facility] MCHC 30.5 (L) 32.3 - 36.5 GM/DL [facility] RDW 13.3 11.6 - 14.4 % [facility] Platelets 503 (H) 150 - 450 K/CU MM [facility] MPV 9.8 9.4 - 12.4 fL [facility] nRBC 0 0 - 0 /100 WBC [facility] Specimen Blood Performing Organization Address City/[facility]/Zipcode Phone Number [facility] [address] [place] [address] CENTER Comprehensive metabolic panel (09/02/2019 4:48 AM CDT)Only the most recent of5 resultswithin the time period is included. Protein, Total 6.6 6.0 - 8.3 [facility] gm/dL [facility] Albumin 3.1 (L) 3.5 - 5.0 [facility] g/dL [facility] Alkaline 57 40 - 150 U/L [facility] Phosphatase [facility] Total Bilirubin 0.3 0.2 - 1.2 [facility] mg/dL [facility] Sodium 141 136 - 145 [facility] meq/L [facility] Potassium 4.3 3.5 - 5.1 [facility] meq/L [facility] Chloride 105 98 - 107 [facility] meq/L [facility] CO2 29 22 - 29 [facility] meq/L [facility] BUN 9 7 - 21 mg/dL [facility] Creatinine 0.75 0.57 - 1.25 [facility] mg/dL [facility] Glucose 112 (H) 70 - 105 [facility] mg/dL [facility] Calcium 9.2 8.4 - 10.2 [facility] mg/dL [facility] AST 52 (H) 5 - 34 U/L [facility] ALT 62 (H) 6 - 55 U/L [facility] EGFR Comment: [facility] CLINICAL DATA TO MEDICAL CENTER CALCULATE ESTIMATED GFR. Specimen Blood Narrative Performed At Cyber Operator ID - NAIF Gunderson [facility] Performing Organization Address City/State/Zipcode Phone Number [facility] [address] [place] [address] CENTER Magnesium (09/01/2019 6:36 AM CDT)Only the most recent of4 resultswithin the time period is included. Pathologist Sig nature Magnesium 2.0 1.6 - 2.6 mg/dL [facility] Specimen Blood Narrative Performed At Cyber Operator ID - NTP [facility] Performing Organization Address [facility] Phone Number [address] [address] [place] Procalcitonin (08/31/2019 3:47 AM CDT)Only the most recent of2 resultswithin the time period is included. Pathologist Sig nature Procalcitonin 0.19 (H) <0.05 ng/mL [facility] Specimen Blood Narrative Performed At SEPSIS RISK (ng/mL) [facility] Low: 0.05-0.50 Intermediate: 0.51-2.00 High: >=2.01 Performing Organization Address [facility] Phone Number [address] [address] CENTER C-Reactive Protein (08/31/2019 3:47 AM CDT)Only the most recent of2 results within the time period is included. Pathologist Sig nature CRP 3.23 (H) 0.00 - 0.50 mg/dL [facility] Specimen Blood Narrative Performed At Cyber Operator ID - PIAYA L [facility] Performing Organization Address City/[facility] Phone Number [address] [address] CENTER Hemoglobin A1c (08/31/2019 3:47 AM CDT) Pathologist Sig nature Hemoglobin A1C 6.4 (H) 4.3 - 6.1 % [facility] Specimen Blood Performing Organization Address [facility] Phone Number [address] [address] CENTER Prothrombin time/INR (08/31/2019 3:46 AM CDT)Only the most recent of2 results within the time period is included. Pathologist Sig nature Protime 15.0 (H) 11.9 - 14.2 seconds [facility] INR 1.2 <=5.9 [facility] Specimen Blood Narrative Performed At Effective 07/16/2018: PT Reference Range [facility] Change New: 11.9-14.2 Previous: 11.7-14.7 RECOMMENDED COUMADIN/WARFARIN INR THERAPY RANGES STANDARD DOSE: 2.0-3.0 Includes: PROPHYLAXIS for venous thrombosis, systemic embolization; TREATMENT for venous thrombosis and/or pulmonary embolus. HIGH RISK: Target INR is 2.5-3.5 for patients wiht mechanical heart valves. Performing Organization Address City/[facility] Phone Number [address] [address] CENTER D-dimer (08/31/2019 3:46 AM CDT)Only the most recent of2 resultswithin the time period is included. Pathologist Sig nature D-Dimer, Quant 2.16 (H) <0.50 MG/L FEU [facility] Specimen Blood Narrative Performed At Intended Use: The D-Dimer Assay can be used [facility] to aid in the diagnosis of Deep Vein Thrombosis (DVT) and Pulmonary Embolism Disease (PED). In patients with low pre-test probability, various studies concerning STA Liatest D-dimer test have reported that with a cutoff value of 0.50 MG/L FEU, the Negative Predictive Value (NPV) regarding the exclusion of thrombosis is within 95-100% range. Performing Organization Address City/[facility]/Zipcode Phone Number [address] [address] CENTER Ferritin (08/31/2019 3:46 AM CDT)Only the most recent of2 resultswithin the time period is included. Pathologist Sig nature Ferritin 408.49 (H) 5.00 - 275.00 ng/mL [facility] Specimen Blood Narrative Performed At Cyber Operator ID - BS [facility] Performing Organization Address City/State/Zipcode Phone Number [facility] [address] [place] [address] CENTER 2D Echo W/Doppler(CW/PW/Color) (08/30/2019 11:53 AM CDT) Pathologist Sig nature Ejection Fraction [facility] ECHO [facility] Specimen Narrative Performed At Transthoracic Echocardiography Report (T TE) [facility] ECHO [facility] Demographics Patient Name JORGE GOMEZ Date of Study 08/30/2019 SOBEIDA Gender Male Visit Number [id number] Race Unknown Room Number 7212 Number Date of 1960 Referring Physician Scott Fraser Age 59 year(s) Home Care Chaplain Octavia Adams [facility] Putty Worker Daphne Buck Interpreting Susi Lopez MD Procedure Type of Study TTE procedure:2DECHO W DOPPLER(CW/PW/COLOR) (Routine) Indications:Shortness of breath. Clinical History Suspected COVID19+, PNA, Acute hypoxic respiratory failure, [place] HGB 12.1 HCT 38.2 % Height: 68 inches Weight: 120.66 kg (266 lbs) BSA: 2.31 m^2 BMI: 40.44 kg/m^2 HR: 76 bpm BP: 140/97 mmHg Summary 1. Noremal LV size and function. Estimated LVEF is normal (55-60%) . All of the LV segments contract normally. 2. Normal RV size and function. 3. Unable to estimate peak systolic PA pressure. 4. No significant valve disease detecte d. Previous Study No prior exam available for comparison. Signature Findings Technical Quality: Good visualization Left Ventricle Limited stud y. The left ventricle is chamber size (by PSLAX dimension) is normal (male - LVIDd 4.2-5.8cm) . Normal LV wall thickness. All of the LV segments contract normally . Global LV systolic function normal . Estimated LVEF by qualitative assessment is normal (55- 60%) . LV endocardium is adequately visualized with IV ultrasound enhancing agent. Left Atrium LA size is normal (16-34 ml/m2) . Right Ventricle The right ventricular chamber size and systolic function are within normal limits. Right Atrium RA cavity size is normal . Aortic Valve AoV thickening primarily involves the right- coronary cups(s). AoV cusp mobility is normal . Mitral Valve Mild MV leaflet thickening. Mild mitral annular calcification. Trace mitral regurgitation. Tricuspid Valve TV structure is normal. Unable to estimate peak systolic PA pressure; inadequate TR velocity signal. A trace of tricuspid regurgitation. Pulmonic Valve PV is not well visualized; function appears normal by Doppler visualized. Aorta Aortic root size (SInus of Valsalva diameter) is norm al . Pericardium No significant pericardial effusion is visualized. IVC/SVC/PA/PV/Pleural The estimated RA pressure by IVC dynamics 5-10mmHg . Chambers/Structures Left Atrium LA Volume: 66.8 ml LA Area: 22.39 cm^2 LA Vol. Index: 29 ml/m^2 Left Ventricle LVIDd: 4.73 cm LVEDV:151.45 m l LV Septum Diastolic: 1.06 cm LV PW Diastolic: 1.03 cm Right Ventricle RVOT VTI: 11.43 cm Aorta Ao Root S of Cecilia.: 3.16 cm Procedure Note Interface, External Ris In - 08/30/2019 5:35 PM CDT Transthoracic Echocardiography Report (TTE) Demographics Patient Name JORGE GOMEZ Date of Study 08/30/2019 SOBEIDA Gender Male Visit Number [id number] Race Unknown Room Num [facility] 7212 Number Date of 1960 John hughes Physician Scott Fraser Age 59 year(s) Sonograp her Octavia Adams RDCS Putty Worker Susi Pompa MD Procedure Type of Study TTE procedure:2DECHO W DOPPLE R(CW/PW/COLOR) (Routine) Indications:Shortness of breath. Clinical History Suspected COVID19+, PNA, Acute hypoxic r espiratory failure, GUADALUPE HGB 12.1 HCT 38.2 % Height: 68 inches Weight: 120.66 kg (266 lbs) BSA: 2.31 m^2 BMI: 40.44 kg/m^2 HR: 76 bpm BP: 140/97 mmHg Summary 1. Noremal LV size and function. Estima aurora LVEF is normal (55-60%) . All of the LV segments contract normally. 2. Normal RV size and function. 3. Unable to estimate peak systolic PA pressure. 4. No significant valve disease detecte d. Previous Study No prior exam available for comparison. Signature Findings Technical Quality: Good visualization Left Ventricle Limited study. The left ventric le is chamber size (by PSLAX dimension) is no rmal (male - LVIDd 4.2-5.8cm) . Normal LV wall t hickness. All of the LV se gments contract normally . Global LV systol ic function normal . Estimated LVEF b y qualitative assessment is normal (55-60%) . LV endocardium i s adequately visualized with IV ultrasound enhan cing agent. Left Atrium LA size is jeanine l (16-34 ml/m2) . Right Ventricle The right ventri cular chamber size and systolic function are wit hin normal limits. Right Atrium RA cavity size i s normal . Aortic Valve AoV thickening p rimarily involves the right- coronary cups(s) . AoV cusp mobilit y is normal . Mitral Valve Mild MV leaflet thickening. Mild mitral charlotte lar calcification. Trace mitral reg urgitation. Tricuspid Valve TV structure is normal. Unable to estima te peak systolic PA pressure; inadequate TR ve locity signal. A trace of tricu spid regurgitation. Pulmonic Valve PV is not well v isualized; function appears normal by Doppler visua lized. Aorta Aortic root size (SInus of Valsalva diameter) is normal . Pericardium No significant p ericardial effusion is visualized. IVC/SVC/PA/PV/Pleural The estimated RA pressure by IVC dynamics 5-10mmHg . Chambers/Structures Left Atrium LA Volume: 66.8 ml LA Area: 22.39 cm^2 LA Vol. Index: 29 ml/m^2 Left Ventricle LVIDd: 4.73 cm LVEDV:151.45 ml LV Septum Diastolic: 1.06 cm LV PW Diastolic: 1.03 cm Right Ventricle RVOT VTI: 11.43 cm Aorta Ao Root S of Cecilia.: 3.16 cm Performing Organization Address City/State/Zipcode Phone Number [facility] Urinalysis w/Microscopic + Reflex to Culture (08/30/2019 3:29 AM CDT) Color, UA Yellow [facility] Clarity, UA Clear [facility] Specific [place], 1.030 1.001 - 1.035 [facility] pH, UA 6.0 5.0 - 8.0 [facility] Protein, UA 200 mg/dL (A) Negative [facility] Glucose, UA Negative Negative [facility] Ketones, UA Trace (A) Negative [facility] Bilirubin, UA Negative Negative [facility] Blood, UA Negative Negative [facility] Nitrite, UA Negative Negative [facility] Leukocytes, UA Negative Negative [facility] Urobilinogen, UA 0.2 0.2 - 1.0 mg/dL [facility] RBC, UA <1 /HPF [facility] WBC, UA 2 /HPF [facility] Mucus Rare [facility] Squam Epithel, UA <1 /HPF [facility] Specimen Source [facility] Specimen Urine - Urine specimen collection, clean catch (procedure) Narrative Performed At Cyber Operator ID - [auto] [facility] Cyber Operator ID - tech Performing Organization Address [facility]/Zipcode Phone Number [address] [address] [place] Strep pneumoniae antigen (08/30/2019 3:28 AM CDT) Strep pneumoniae Presumptive Presumptive [facility] Antigen negative for negative for [facility] pneumococcal pneumococcal [facility] pneumonia - see pneumonia - see comment comment, Presumptive negative for pneumococcal meningitis - see comment Specimen Urine - Urine (substance) Narrative Performed At Presumptive negative for pneumococcal [facility] pneumonia, suggesting no current or recent pneumococcal infection. Infection due to S. pneumoniae cannot be ruled out since the antigen present in the sample may be below the detection limit of the test. Performing Organization Address City/[facility] Phone Number [address] [address] [place] Legionella antigen, urine (08/30/2019 3:28 AM CDT) Legionella Urine Negative - see [facility] Antigen commentComment: [facility] Negative for [facility] pneumophila serogroup 1 antigen, suggesting no recent or current infection with this serogroup. Legionellosis cannot be ruled out since other serogroups and species may cause disease. Specimen Urine Performing Organization Address City/State/Zipcode Phone Number [address] [address] [place] Blood gas, arterial (08/30/2019 3:25 AM CDT) Pathologist Sig nature pH, Arterial 7.46 (H) 7.35 - 7.45 [facility] pCO2, Arterial 36 35 - 45 mmHg [facility] pO2, Arterial 107 (H) 80 - 90 mmHg [facility] O2 Sat, Arterial 98.1 (H) 96.0 - 97.0 % [facility] HCO3, Arterial 25 21 - 29 mmol/L [facility] Base Excess, Arterial 1.6 -2.0 - 3.0 [facility] mmol/L [facility] Patient Temperature 37.5 C [facility] FIO2 50.0 % [facility] Specimen Blood, Arterial Performing Organization Address [facility]y Phone Number [address] [address] [place] Creatine Kinase (CK) (08/30/2019 3:25 AM CDT) Pathologist Sig nature Total CK 63 29 - 200 U/L [facility] Specimen Blood Narrative Performed At Cyber Operator VINNIE Gunderson [facility] Performing Organization Address [facility] Phone Number [address] [address] [place] Blood Culture - Routine (Left Venipuncture) (08/29/2019 6:05 PM CDT)Only the most recent of2 resultswithin the time period is included. Pathologist Sig nature Result No growth in 5 days [facility] Specimen Blood - Entire left upper arm (body stru cture) Performing Organization Address [facility] Phone Number [address] [address] [place] TSH/Free T4 If Indicated (08/29/2019 5:51 PM CDT) Pathologist Sig nature TSH 0.322 (L) 0.350 - 4.940 uIU/mL [facility] Specimen Blood Narrative Performed At Cyber Operator ID - DB [facility] ICAL [place] Performing Organization Address City/[facility]/Zipcode Phone Number [address] [address] [place] HIV-1 Antigen with HIV-1/2 Antibody (08/29/2019 5:51 PM CDT) Pathologist Sig nature HIV-1 Antigen with Nonreactive Nonreactive [facility] HIV 1&2 Antibody [facility] Specimen Blood Narrative Performed At Cyber Operator ID - DB [facility] Performing Organization Address City/[facility] Centercode Phone Number [address] [address] [place] T4, free (08/29/2019 5:51 PM CDT) Pathologist Sig nature Free T4 1.05 0.70 - 1.48 ng/dL [facility] Specimen Blood Narrative Performed At Cyber Operator ID - DB [facility] Performing Organization Address City/[facility] Centercode Phone Number [address] [address] [place] B-type Natriuretic Factor (BNP) (08/29/2019 5:51 PM CDT) Pathologist Sig nature BNP 17 0 - 100 pg/mL [facility] Specimen Blood Narrative Performed At Cyber Operator ID - DANNY M [facility] Performing Organization Address City/State/Zipcode Phone Number [address] [address] [place] Thromboelastograph (TEG) (08/29/2019 5:35 PM CDT) TEG Activated Clotting 4.8 4.0 - 7.0 [facility] Time minutes [facility] TEG Fibrinogen 77.2 (H) 61.0 - 73.0 [facility] Activity degrees [facility] TEG Platelet 81.8 (H) 55.0 - 65.0 MM [facility] Aggregation [facility] TEG Fibrinolysis 0.0 0.0 - 5.0 % [facility] TEG-H Activated 4.8 4.0 - 7.0 [facility] Clotting Time minutes [facility] TEG-H Fibrinogen 80.2 (H) 61.0 - 73.0 [facility] Activity degrees [facility] TEG-H Platelet 86.4 (H) 55.0 - 65.0 MM [facility] Aggregation [facility] TEG-H Fibrinolysis 0.0 0.0 - 5.0 % [facility] Specimen Blood Performing Organization Address City/[facility] Centercode Phone Number [address] [address] [place] Troponin I (08/29/2019 5:34 PM CDT) Pathologist Sig nature Troponin I <0.01 0.00 - 0.03 ng/mL [facility] Specimen Blood Narrative Performed At Troponin I (TnI) levels must be interpreted [facility] in the context of the presenting symptoms and the clinical findings. Elevated TnI levels indicate myocardial damage, but are not specific for ischemic heart disease. Elevated TnI levels are seen in patients with other cardiac conditions (including myocarditis and congestive heart failure), and slight TnI elevations occur in patients with other conditions, including sepsis, renal failure, acidosis, acute neurological disease, and persistent tachyarrhythmia. Cyber Operator ID - DANNY [place] Performing Organization Address City/[facility] Centercode Phone Number [phone] [place] [address] [place] Lactic acid, venous (08/29/2019 5:34 PM CDT) Pathologist Sig nature Lactate, Venous 0.98 0.50 - 2.20 mmol/L [facility] Specimen Blood Narrative Performed At Cyber Operator ID - DANNY Medellin [facility] Performing Organization Address City/State/Zipcode Phone Number [facility] [address] [place] [address] [place] Fibrinogen (08/29/2019 5:34 PM CDT) Pathologist Sig nature Fibrinogen 1,107 (H) 225 - 434 mg/dl [facility] Specimen Blood Performing Organization Address [facility]/[place] Phone Number [address] [address] [place] Lactate dehydrogenase (LDH) (08/29/2019 5:34 PM CDT) Pathologist Sig nature LDH 359 (H) 125 - 220 U/L [facility] Specimen Blood Narrative Performed At Cyber Operator VINNIE Lockwood DANNY Medellin [facility] Performing Organization Address City/[facility] Phone Number [address] [address] [place] Respiratory Panel [facility] (08/29/2019 5:17 PM CDT) Human Metapneumovirus Not detected Not detected, [facility] Rhinovirus Not detected Not detected, [facility] Influenza A Not detected Not detected, [facility] INFLUENZA A (NO [facility] SUBTYPE) [facility] Influenza A subtype H1 [facility] Influenza A Subtype H3 [facility] Influenza A Subtype [facility] H1-2009 [facility] Influenza B Not detected Not detected, [facility] Respiratory Syncytial Not detected Not detected, [facility] Virus [facility] Parainfluenza Virus 1 Not detected Not detected, [facility] Parainfluenza Virus 2 Not detected Not detected, [facility] Parainfluenza virus 3 Not detected Not detected, [facility] Parainfluenza Virus 4 Not detected Not detected, [facility] Adenovirus Not detected Not detected, [facility] Coronavirus 229E Not detected Not detected, [facility] Coronavirus HKU1 Not detected Not detected, [facility] Coronavirus NL63 Not detected Not detected, [facility] Coronavirus OC43 Not detected Not detected, [facility] Bordetella Pertussis Not detected Not detected, [facility] Chlamydophila Not detected Not detected, [facility] Pneumoniae [facility] Mycoplasma Pneumoniae Not detected Not detected, [facility] Specimen Nasopharyngeal - Nasopharyngeal wall str ucture (body structure) Narrative Performed At Other viruses and bacteria not targeted by [facility] this PCR panel cannot be excluded; therefore clinical correlation and follow up of serology, culture results, and other molecular studies is required. The results are not intended to be used as the sole means for clinical diagnosis or patient management decisions. This sample was tested at the [facility] Molecular Diagnostics Laboratory using the [employer] FilmArray Respiratory Panel. It is FDA cleared and has been verified and approved by the [facility] Molecular Diagnostics Laboratory for clinical use on nasopharyngeal swab specimens. The performance of the FilmArray RP has not been established in individuals who received influenza vaccine. Recent administration of a nasal influenza vaccine may cause false positive results for Influenza A and/or Influenza B. Performing Organization Address City/[facility] Centercode Phone Number [address] [address] [place] Rapid Influenza A&B Screen (08/29/2019 5:17 PM CDT) Rapid Influenza A Negative Negative, [facility] Antigen Inconclusive [facility] Rapid influenza B Negative Negative, [facility] Antigen Inconclusive [facility] Specimen Nasal - Nasopharyngeal wall structure (b francoise structure) Performing Organization Address [facility]/Zipcode Phone Number [phone] [place] [address] [place] XR chest 1 view portable / bedside (08/29/2019 5:07 PM CDT) Specimen Narrative Performed At FINAL REPORT GE RIS Chest, one view History: Pneumonia Comparison: none Findings: Bilateral patchy airspace disease, right greater than left. Normal size heart. No pleural effusion or pne umothorax. Impression: Bilateral patchy airspace disease, right greater than left. This is concerning for multifocal pneumonia. Signed: Romeo Fernando MD Report Verified Date/Time: 08/29/2019 17:29:19 Reading Location: [facility] [id number] Consult R eading Room Procedure Note Interface, External Ris In - 08/29/2019 5:31 PM CDT FINAL REPORT Chest, one view History: Pneumonia Comparison: none Findings: Bilateral patchy airspace disease, right greater than left. Normal size heart. No pleural effusion or pneu mothorax. Impression: Bilateral patchy airspace disease, right greater than left. This is concerning for multifocal pneumonia. Signed: Romeo Fernando MD Report Verified Date/Time: 08/29/2019 1 7:29:19 Reading Location: [facility] B1 [id number] Consult R eading Room Performing Organization Address City/State/Zipcode Phone Number GE RIS after 12/13/2018 Insurance Payer Benefit Plan / Subscriber ID Effective Dates Phone Addre ss Type Group CDC REVIEW CDC REVIEW [id number] 2019-[place] [address] [place] [address] Advance Directives For more information, please contact: [phone] Code Status Date Activated Date Inactivated Comments Full Code 08/29/2019 4:42 PM 09/04/2019 1:43 PM This code status was determined by: Patient
--- OUTSIDE RECORDS SUMMARY | 2019-12-14 12:54 | XMS REPORT | Continuity of Care Document ---
:[address] [facility] t Address [address] [place] [address] Care Team Providers Name Role Phone Fercho CARRERA Attending Clinician Marina Toribio MD Attending Clinician Vaughn PAULINO Attending Clinician Papi Blackburn MD Attending Clinician Willard Ni MD Attending Clinician Darell PAULINO, Ariana Attending Clinician VAUGHN Attending Clinician Unavailable VAUGHN Admitting Clinician Unavailable Payers Payer Name Policy Type Policy Number Effective Date Expiration Date S paris [facility] REVIEWCDC [id number] 2019 [facility] [id number] 00:00:00 - [place] [address] Problems Condition Condition Condition Status Onset Resolution Last Treating Co mments Source Name Details Category Date Date Treatment Clinician Date Pneumonia Pneumonia Disease Active [facility] 08-28 [facility] - 00:00: Medical 00 Center Allergies, Adverse Reactions, Alerts This patient has no known allergies or adverse reactions. Social History Social Habit Start Date Stop Date Quantity Comments Source Sex Assigned At [facility] Smoking Status Start Date Stop Date Source Never smoker [facility] Medications Ordered Filled Start Stop Current Ordering Indication Dosage Frequency Signature Comments Components Source Medication Medication Date Date Medication? Clinician (SIG) Name Name dexAMETHaso 2020-0 2020- No 6mg QD Take [address] [facility] 09-03 tablet (6 [facility] - (DECADRON) 00:00: 23:59 mg total) M edical 6 MG tablet 00 :00 by mouth Cent er daily for 6 days. sucralfate 2020- No 1g Take [address] [address] (CARAFATE) 09-02 08-15 mLs (1 g Luke s - 100 mg/mL 00:00: 23:59 total) by Ar dical suspension 00 :00 mouth Center every 6 (six) hours for 30 days. codeine-gua 2019- No 5mL Take [address] [facility] ifenesin 09-02- by mouth [facility] - (GUAIFENESI 00:00: 23:59 every 4 Me dical N AC) 00 :00 (four) Center 10-100 mg/5 hours as mL liquid needed for Cough for up to 10 days. Max Daily Amount: 30 mLs doxycycline No 100mg Q.5D Take [address] (MONODOX) 09-02 capsule [facility] - 100 MG 00:00: 23:59 (100 mg Medical capsule 00 :00 total) by Center mouth 2 (two) times daily for 7 days. Vital Signs Vital Name Observation Time Observation Value Comments Source Systolic blood 2019-09-04 08:06:00 136 mm[Hg] [facility] Diastolic blood 2019-09-04 08:06:00 86 mm[Hg] [facility] Heart rate 2019-09-04 08:06:00 75 /min [facility] Respiratory rate 2019-09-04 08:06:00 18 /min [facility] Oxygen saturation in 2019-09-04 08:06:00 98 /min [facility] Arterial blood by Medical Ce nter Pulse oximetry Body temperature 2019-09-04 05:46:00 36.28 Bhavani [facility] Body weight 2019-09-04 05:46:00 124.5 kg [facility] BMI 2019-09-04 05:46:00 41.73 kg/m2 [facility] Body height 2019-08-29 20:00:00 172.7 cm [facility] Procedures Procedure Date / Time Performing Clinician Source Performed REPORT OF PROCEDURE - 2019-09-07 14:10:37 Provider, Default [facility] ENDOSCOPY SCAN [facility] RHYTHM STRIP - SCAN 2019-09-07 14:10:30 Provider, Default [facility] POCT-GLUCOSE METER 2019-09-03 20:16:00 Erika Lozoya [facility] POCT-GLUCOSE METER 2019-09-03 17:31:00 Erika Lozoya [facility] SARS-COV2/RT-PCR ([facility] & REF 2019-09-03 11:30:00 E[facility] POCT-GLUCOSE METER 2019-09-03 11:24:00 Erika Lozoya [facility] POCT-GLUCOSE METER 2019-09-03 08:03:00 Erika Lozoya [facility] POCT-GLUCOSE METER 2019-09-02 23:05:00 Erika Lozoya [facility] POCT-GLUCOSE METER 2019-09-02 16:39:00 Erika Lozoya [facility] POCT-GLUCOSE METER 2019-09-02 11:40:00 Erika Lozoya [facility] POCT-GLUCOSE METER 2019-09-02 08:06:00 Erika Lozoya [facility] COMPREHENSIVE METABOLIC 2019-09-02 04:48:[address] [facility] CBC W/PLT COUNT & AUTO 2019-09-02 04:48:00 Bal [facility] (CELLAVISION MANUAL DIFF) 2019-09-02 04:48:00 Steffi Selby [facility] POCT-GLUCOSE METER 2019-09-01 21:31:00 Erika Lozoya [facility] SARS-COV2/RT-PCR ([facility] & REF 2019-09-01 14:07:00 Erika Lozoya [facility] POCT-GLUCOSE METER 2019-09-01 12:10:00 Erika Lozoya [facility] POCT-GLUCOSE METER 2019-09-01 08:47:00 Erika Lozoya [facility] COMPREHENSIVE METABOLIC 2019-09-01 06:36:00 Bal [facility] MAGNESIUM 2019-09-01 06:36:00 Bal [facility] CBC W/PLT COUNT & AUTO 2019-09-01 05:07:00 Bal [facility] POCT-GLUCOSE METER 2019-08-31 22:49:00 Erika Lozoya [facility] POCT-GLUCOSE METER 2019-08-31 16:21:00 Kali Ni [facility] POCT-GLUCOSE METER 2019-08-31 11:14:00 [facility] POCT-GLUCOSE METER 2019-08-31 08:43:00 [facility] C-REACTIVE PROTEIN 2019-08-31 03:47:00 Bal [facility] METABOLIC 2019-08-31 03:47:00 Bal [facility] PROCALCITONIN 2019-08-31 03:47:00 Bal [facility] MAGNESIUM 2019-08-31 03:47:00 Bal [facility] HEMOGLOBIN A1C 2019-08-31 03:47:00 Pippa Harris [facility] CBC W/PLT COUNT & AUTO 2019-08-31 03:47:00 [facility] D-DIMER 2019-08-31 03:46:00 Bal [facility] FERRITIN 2019-08-31 03:46:[facility]INR 2019-08-31 03:46:00 [facility] POCT-GLUCOSE METER 2019-08-30 21:22:00 [facility] POCT-GLUCOSE METER 2019-08-30 16:49:00 [facility] 2D ECHO W/ DOPPLER 2019-08-30 11:53:00 David Valera [facility] ukes - (CW/PW/COLOR) [facility] POCT-GLUCOSE METER 2019-08-30 11:28:00 [facility] SARS-COV2/RT-PCR ([facility] & REF 2019-08-30 06:58:00 David Valera [facility] LABS) [facility] URINALYSIS W/ REFLEX URINE 2019-08-30 03:29:00 Steffi Selby [facility] LEGIONELLA URINE ANTIGEN 2019-08-30 03:28:00 Bal [facility] CREATINE KINASE (CK) 2019-08-30 03:25:00 Bal [facility] COMPREHENSIVE METABOLIC 2019-08-30 03:25:00 Bal [facility] MAGNESIUM 2019-08-30 03:25:00 Bal [facility] BLOOD GAS, ARTERIAL 2019-08-30 03:25:00 DannyMahdi Shea chirinos [facility] CBC W/PLT COUNT & AUTO 2019-08-30 03:25:00 Bal Steffi [facility] (CELLAVISION MANUAL DIFF) 2019-08-30 03:25:00 Steffi Selby [facility] POCT-GLUCOSE METER 2019-08-29 19:04:00 Jimenez Ferrer [facility] BLOOD CULTURE 2019-08-29 18:05:00 Bal [facility] HIV-1 ANTIGEN WITH HIV-1/2 2019-08-29 17:51:[address] [facility] TSH/FREE T4 IF INDICATED 2019-08-29 17:51:00 Bal [facility] B-TYPE NATRIURETIC FACTOR 2019-08-29 17:51:00 Bal [facility] (BNP) [facility] T4, FREE 2019-08-29 17:51:00 Bal, [facility] BLOOD CULTURE 2019-08-29 17:36:00 Bal, [facility] THROMBOELASTOGRAPH (TEG) 2019-08-29 17:35:00 Bal [facility] COMPREHENSIVE METABOLIC 2019-08-29 17:34:00 Bal [facility] LACTATE DEHYDROGENASE (LDH) 2019-08-29 17:34:00 Bal [facility] FERRITIN 2019-08-29 17:34:00 Bal, [facility] PROCALCITONIN 2019-08-29 17:34:00 Bal [facility] TROPONIN I 2019-08-29 17:34:00 Bal [facility] D-DIMER 2019-08-29 17:34:00 [facility] PROTHROMBIN TIME/INR 2019-08-29 17:34:00 Bal [facility] LACTIC ACID, VENOUS 2019-08-29 17:34:00 Bal, [facility] FIBRINOGEN 2019-08-29 17:34:00 Bal [facility] C-REACTIVE PROTEIN 2019-08-29 17:34:00 Bal [facility] MAGNESIUM 2019-08-29 17:34:00 Bal [facility] CBC W/PLT COUNT & AUTO 2019-08-29 17:34:00 [facility] (CELLAVISION MANUAL DIFF) 2019-08-29 17:34:00 Bal, [facility] SARS-COV2/RT-PCR ([facility] & REF 2019-08-29 17:17:00 Bal, [facility] RESPIRAT[facility] PANEL [facility] 2019-08-29 17:17:00 Steffi Selby [facility] RAPID INFLUENZA A&B SCREEN 2019-08-29 17:17:00 Steffi Selby [facility] XR CHEST 1 VIEW 2019-08-29 17:07:00 Steffi Selby [facility] - PORTABLE/BEDSIDE [facility] Plan of Care Planned Activity Planned Date Details Comments Source Future Scheduled 2019-10-[address] [facility] - Test 00:00:00 (#1) [code = [facility] INFLUENZA VACCINE (#1)] Future Scheduled 1995-01-29 [facility] (procedure) [code = [facility] 16530199] Future Scheduled [address] - Test 00:00:00 malignant neoplasm Medical C enter of colon (procedure) [code = 397910420] Encounters Start End Encounter Admission Attending Care Care Encounter Source Date/Time Date/Time Type Type Clinicians Facility Department ID 2019-11-19 2019-11-19 Office Fercho CAARSEN [id number] 15:23:44 16:02:25 Visit Slick Chand [id number] Demi [id number] Sangeeta [id number] [address] 2019-10-06 2019-10-06 Office AL Toribio [id number] 08:46:08 09:53:33 Visit Joana AMBULATOR [id number] Marina Kidd [id number] Results Test Description Test Time Test Comments Results Result Comments Source POC-Glucose meter 2019-09-03 20:29:00 Test Item Value Reference Range Interpretation Comme nts POC-Glucose Meter (test code = 125 mg/dL 70-110 H : TESTED AT [facility] [address] [facility] 1538) [facility], [facility] 30: Landscape Manager/Techni devon ID = [id number] for OLIVIA VALDERRAMA Lab Interpretation (test code = Abnormal 21807-5) [facility] [id number] 20:29:00 Test Item Value Reference Range Interpretation Comments POC-GLUCOSE METER 125 mg/dL 70-110 H : TESTED A T [facility] [address] (BEAKER) (test code = TRICIA RAMOS [place], 1538) [address]: Landscape Manager/Techni devon ID = [id number] for LAVELLE HUMPHRIES Blood Culture - Routine (Left Venipuncture)2019-09-03 19:01:00 Test Item Value Reference Range Interpretation Comments Result (test code = No growth in 5 days 6463-4) [facility] [id number] 19:01:00 Test Item Value Reference Range Interpretation Comments CULTURE (BEAKER) (test No growth in 5 days code = 1095) BLOOD [id number] 19:01:00 Test Item Value Reference Range Interpretation Comments CULTURE (BEAKER) (test No growth in 5 days code = 1095) SARS-CoV2/RT-PCR (Symptomatic ONLY)2019-09-03 17:57:00 Test Item Value Reference Range Interpretation Comments SARS-COV2/RT-PCR Negative Not Detected, (test code = Negative 56960-6) SARS-COV-2 [facility] PERFORMING LAB (test code = 38171-1) DONNIE (test code = Negative results do not DONNIE) preclude SARS-CoV-2 infection and should not be used as [...] of the Act. Fact Sheet for Healthcare Providers:https://www.SomethingIndie/Documents/Xper t%20Xpress%20SARS%20CoV- 2/Fact%20Sheets/302-3802 %75JCSK-ZXS-9%20HEALTHCA RE%20PROVIDERS%20FACT%20 SHEET.pdf Fact Sheet for Healthcare Patients:https://www.iKoa/Documents/Xpert %20Xpress%20SARS%20CoV-2 /Fact%20Sheets/302-3801% 77VOZK-DGI-3%20PATIENT%2 0FACT%20SHEET.pdf Performing Laboratory:[facility] [facility] [place] [address] [facility] & REF LABS)2019-09-03 17:57:00 Test Item Value Reference Range Interpretation Comments SARS-COV2/RT-PCR (test code = Negative Not Detected, Negative [id number]) SARS-COV-[address] [facility] (test code = 2375057) Negative results do not preclude SARS-CoV-2 infection and should not be used as the sole basis for patient management decisions. Negative results must be combined with clinical observations, patient history, and epidemiological information. A false negative result may occur if a specimen is improperly collected, transported or handled.The limit of detection for this assay is 250 copies/mL.This SARS CoV-2 test is a rapid, real-time RT-PCR test intended for the qualitative detection of nucleic acid from SARS-CoV-2 in a nasopharyngeal swab specimen collected from individuals suspected of COVID-19 by their healthcare provider.This test has not been Food and Drug [...] is revoked under Section 564(g) of the Act.Fact Sheet for Healthcare Pro viders:https://www.eInstruction by Turning Technologies/Documents/Xpert%20Xpress%20SARS%20CoV-2/Fact%20Sh eets/302-3802%44ZEUZ-RGW-5%20HEALTHCARE%20PROVIDERS%20FACT%20SHEET.pdfFact Sheet for Healthcare Patients:https://www.Nextnav.OpenStudy/Documents/Xpert%20Xpress%20SARS%20CoV-2/Fact%20Sheets/302-3801%20SARS-COV -2%20PATIENT%20FACT%20SHEET.pdfPerforming Laboratory:[facility] [place], [place] [address]AGNY-VBMMTNQ [id number] 17:42:00 Test Item Value Reference Range Interpretation Comments POC-GLUCOSE METER 124 mg/dL 70-110 H : TESTED A T [facility] 67[address] (BEAKER) (test code = [facility], 153) [address]: Landscape Manager/Techni devon ID = [id number] for Kaelyn Maldonado POCT-GLUCOSE [id number] 11:37:00 Test Item Value Reference Range Interpretation Comments POC-GLUCOSE METER 119 mg/dL 70-110 H : TESTED A T [facility] [address] (BEAKER) (test code = [facility], 153) [address]: Landscape Manager/Techni devon ID = [id number] for LO MISHRA POCT-GLUCOSE [id number] 08:20:00 Test Item Value Reference Range Interpretation Comments POC-GLUCOSE METER 112 mg/dL 70-110 H : TESTED A T [facility] [address] (BEAKER) (test code = [facility], 153) [address]: Landscape Manager/Techni devon ID = [id number] for YURI MORROW, LO POCT-GLUCOSE [id number] 23:16:00 Test Item Value Reference Range Interpretation Comments POC-GLUCOSE METER 114 mg/dL 70-110 H : TESTED A T [facility] [address] (BEAKER) (test code = [facility], 153) [address]: Landscape Manager/Techni devon ID = [id number] for ARIANNE SEALS CHARLIE POCT-GLUCOSE [id number] 17:52:00 Test Item Value Reference Range Interpretation Comments POC-GLUCOSE METER 125 mg/dL 70-110 H : TESTED A T [facility] [address] (BEAKER) (test code = [facility], 153) [address]: Landscape Manager/Techni devon ID = [id number] for KAELYN VILLANUEVA POCT-GLUCOSE [id number] 11:54:00 Test Item Value Reference Range Interpretation Comments POC-GLUCOSE METER 107 mg/dL 70-110 : TESTED A T [facility] 67[address] (BEAKER) (test code = [facility], 1538) [address]: Landscape Manager/Techni devon ID = [id number] for JUN ROBIN POCT-GLUCOSE [id number] 08:28:00 Test Item Value Reference Range Interpretation Comments POC-GLUCOSE METER 93 mg/dL 70-110 : TESTED A T [facility] [address] (BEAKER) (test code = [facility], 153) [address]: Landscape Manager/Techni devon ID = [id number] for KAELYN GOMEZ CBC with platelet count + automated [id number] 06:37:00 Test Item Value Reference Range Interpretation Comments WBC (test code = 6690-2) 13.7 3.5- 10.5 K/L H RBC (test code = 789-8) 4.23 4.63- 6.08 M/L L MCHC (test code = 786-4) 30.5 32.3- 36.5 GM/DL L Hematocrit (test code = 4544-3) 37.7 % 40.1-51 L MCV (test code = 787-2) 89.1 fL 79-92.2 MCH (test code = 785-6) 27.2 pg 25.7-32.2 RDW (test code = 788-0) 13.3 % 11.6-14.4 Platelets (test code = 777-3) 503 150- 450 K/CU MM H MPV (test code = 33915-4) 9.8 fL 9.4-12.4 nRBC (test code = 413) 0 0- 0 /100 WBC Lab Interpretation (test code = Abnormal 11675-2) [facility] [id number] 06:37:00 Test Item Value Reference Range Interpretation Comments % Neutros (test code = 80 % 2816) % Lymphs (test code = 17 % 2817) % Monos (test code = 1 % 2818) % Eos (test code = 2819) 1 % % Myelo (test code = 1 % 0-0 H 2822) # Neutros (test code = 10.96 K/ul 1.78-5.38 H 2830) # Lymphs (test code = 2.33 K/ul 1.32-3.57 2831) # Monos (test code = 0.14 K/uL 0.3-0.82 L 2832) # Eos (test code = 2834) 0.14 K/uL 0.04-0.54 # Myelo (test code = 0.14 K/uL 0-0 H 2837) Total Counted (test code 100 = 1351) RBC Morphology (test code Normal = 762) Smudge Cells (test code = Present 1371) Giant Platelet (test code Present = 313) Platelet Conc (test code Increased = 3438) DONNIE (test code = DONNIE) Landscape Manager ID - Opal Quiros comments: Slide comments: Lab Interpretation (test Abnormal code = 05636-4) [facility] W/PLT COUNT & AUTO [id number] 06:37:00 Test Item Value Reference Range Interpretation Comments WHITE BLOOD CELL COUNT (BEAKER) 13.7 K/ L 3.5-10.5 H (test code = 775) RED BLOOD CELL COUNT (BEAKER) 4.23 M/ L 4.63-6.08 L (test code = 761) HEMOGLOBIN (BEAKER) (test code = 11.5 GM/DL 13.7-17.5 L 410) HEMATOCRIT (BEAKER) (test code = 37.7 % 40.1-51.0 L 411) MEAN CORPUSCULAR VOLUME (BEAKER) 89.1 fL 79.0-92.2 (test code = 753) MEAN CORPUSCULAR HEMOGLOBIN 27.2 pg 25.7-32.2 (BEAKER) (test code = 751) MEAN CORPUSCULAR HEMOGLOBIN CONC 30.5 GM/DL 32.3-36.5 L (BEAKER) (test code = 752) RED CELL DISTRIBUTION WIDTH 13.3 % 11.6-14.4 (BEAKER) (test code = 412) PLATELET COUNT (BEAKER) (test 503 K/CU MM 150-450 H code = 756) MEAN PLATELET VOLUME (BEAKER) 9.8 fL 9.4-12.4 (test code = 754) NUCLEATED RED BLOOD CELLS 0 /100 WBC 0-0 (BEAKER) (test code = 413) (CELLAVISION MANUAL DIFF)2019-09-02 06:37:00 Test Item Value Reference Range Interpretation Comments NEUTROPHILS - REL 80 % (CELLAVISION)(BEAKER) (test code = 2816) LYMPHOCYTES - REL 17 % (CELLAVISION)(BEAKER) (test code = 2817) MONOCYTES - REL 1 % (CELLAVISION)(BEAKER) (test code = 2818) EOSINOPHILS - REL 1 % (CELLAVISION)(BEAKER) (test code = 2819) MYELOCYTES - REL 1 % 0-0 H (CELLAVISION)(BEAKER) (test code = 2822) NEUTROPHILS - ABS 10.96 K/ul 1.78-5.38 H (CELLAVISION)(BEAKER) (test code = 2830) LYMPHOCYTES - ABS 2.33 K/ul 1.32-3.57 (CELLAVISION)(BEAKER) (test code = 2831) MONOCYTES - ABS 0.14 K/uL 0.30-0.82 L (CELLAVISION)(BEAKER) (test code = 2832) EOSINOPHILS - ABS 0.14 K/uL 0.04-0.54 (CELLAVISION)(BEAKER) (test code = 2834) MYELOCYTES-ABS 0.14 K/uL 0.00-0.00 H (CELLAVISION)(BEAKER) (test code = 2837) TOTAL COUNTED (BEAKER) (test code 100 = 1351) RBC MORPHOLOGY (BEAKER) (test code Normal = 762) SMUDGE CELLS (BEAKER) (test code = Present 1371) GIANT PLATELETS (BEAKER) (test Present code = 313) PLATELET CONCENTRATION Increased (CELLAVISION)(BEAKER) (test code = 3438) Landscape Manager ID - Opal Quiros comments: Slide comments:Comprehensive metabolic [id number] 05:49:00 Test Item Value Reference Range Interpretation Comments Protein, Total (test 6.6 6.0- 8.3 gm/dL code = 2885-2) Albumin (test code = 3.1 g/dL 3.5-5 L 51621-8) Alkaline Phosphatase 57 U/L 40-150 (test code = 6768-6) Total Bilirubin (test 0.3 mg/dL 0.2-1.2 code = 1974-2) Sodium (test code = 141 meq/L 386-964 0274-2) Potassium (test code 4.3 meq/L 3.5-5.1 = 2823-3) Chloride (test code = 105 meq/L 98-107 2074-0) CO2 (test code = 29 meq/L 22-29 2027-9) BUN (test code = 9 mg/dL 7- 3094-0) Creatinine (test code 0.75 mg/dL 0.57-1.25 = 2160-0) Glucose (test code = 112 mg/dL 70-105 H 2345-7) Calcium (test code = 9.2 mg/dL 8.4-10.2 74757-3) AST (test code = 52 U/L 5-34 H 1920-8) ALT (test code = 62 U/L 6-55 H 1742-6) EGFR (test code = [place] [address]-0) CLINICAL DATA T O CALCULATE ESTIMATED GFR. DONNIE (test code = DONNIE) Landscape Manager ID - PIAYA L Lab Interpretation Abnormal (test code = 62589-2) [facility] [id number] 05:49:00 Test Item Value Reference Range Interpretation Comments TOTAL PROTEIN 6.6 gm/dL 6.0-8.3 (BEAKER) (test code = 770) ALBUMIN (BEAKER) 3.1 g/dL 3.5-5.0 L (test code = 1145) ALKALINE PHOSPHATASE 57 U/L 40-150 (BEAKER) (test code = 346) BILIRUBIN TOTAL 0.3 mg/dL 0.2-1.2 (BEAKER) (test code = 377) SODIUM (BEAKER) (test 141 meq/L 136-145 code = 381) POTASSIUM (BEAKER) 4.3 meq/L 3.5-5.1 (test code = 379) CHLORIDE (BEAKER) 105 meq/L 98-107 (test code = 382) CO2 (BEAKER) (test 29 meq/L code = 355) BLOOD UREA NITROGEN 9 mg/dL 7-21 (BEAKER) (test code = 354) CREATININE (BEAKER) 0.75 mg/dL 0.57-1.25 (test code = 358) GLUCOSE RANDOM 112 mg/dL 70-105 H (BEAKER) (test code = 652) CALCIUM (BEAKER) 9.2 mg/dL 8.4-10.2 (test code = 697) AST (SGOT) (BEAKER) 52 U/L 5-34 H (test code = 353) ALT (SGPT) (BEAKER) 62 U/L 6-55 H (test code = 347) EGFR (BEAKER) (test INSUFFIC IENT CLINICAL code = 1092) DATA TO CALCULA TE ESTIMATED GFR. Landscape Manager ID - PIAYA LSARS-COV2/RT-PCR ([facility])2019-09-01 23:35:00 Test Item Value Reference Range Interpretation Comments SARS-COV2/RT-PCR (test code = Negative Not Detected, Negative 1804523) SARS-COV-[address] [facility] (test code = 9543250) Negative result for this test determines that SARS-CoV-2 RNA was not present in the specimen above the Limit of Detection (LOD). However, Negative results do not preclude SARS-CoV-2 infection and should not be used as the sole basis for treatment or patient management decisions. Negative results mustbe combined with clinical observations, patient history, and epidemiological information. A false negative result may occur if a specimen is improperly collected, transported or handled. A false negative result should be considered if patient's recent exposures or clinical presentation indicate that COVID-19 (SARS-CoV-2) is likely and diagnostic tests for other causes of illness are negative. Re-testing should be considered in cases of suspected false negatives.The limit of detection for this assay is 800 copies/mL.This SARS CoV-2 test is a real-time RT-PCR test intended for the qualitative detection of nucleic acid from SARS-CoV-2 in a nasopharyngeal swab specimen collected from individuals susp ected of COVID-19 by their healthcare provider.This test has not been Food and Drug Administration (FDA) cleared or approved. This is a modified version of an approved Emergency Use Authorization (EUA) and is in the process of review by the FDA. Once authorized by the FDA, the issued EUA will be effective until the declaration that circumstances exist justifying the authorization of the emergency use of in vitro diagnostic tests for detection and/or diagnosis of COVID-19 is terminated under Section 564(b)(2) of the Act or the EUA is revoked under Section 564(g) of the Act.Fact Sheet for Healthcare Providers:https://www.Drop 'til you Shop/sites/default/files/product/documents/Fact_Shee e_LK_Ounwrkvlb_Fjgu_IEDB-QrS-4.pdfFact Sheet for Healthcare Patients:https://www.Drop 'til you Shop/sites/default/files/product/ documents/Adfw_Oridg_Gzjbznor_Ivah_WMEN-GlH-8.pdfPerforming Laboratory:[place] [address], [place] [address]FTWD-AUMYAUT METER 2019-09-01 21:42:00 Test Item Value Reference Range Interpretation Comments POC-GLUCOSE METER 117 mg/dL 70-110 H : TESTED A T [facility] [address]20 (BEAKER) (test code [facility], = 1538) [address]: Landscape Manager/Techni devon ID = [id number] for ANGELICA TIPTON POCT-GLUCOSE [id number] 12:24:00 Test Item Value Reference Range Interpretation Comments POC-GLUCOSE METER 157 mg/dL 70-110 H : TESTED A T [facility] [address] (BEAKER) (test code = [facility], 1538) [address]: Landscape Manager/Techni devon ID = [id number] for KAELYN VILLANUEVA POCT-GLUCOSE [id number] 08:58:00 Test Item Value Reference Range Interpretation Comments POC-GLUCOSE METER 135 mg/dL 70-110 H : TESTED A T [facility] [address] (BEAKER) (test code = [facility], 1538) [address]: Landscape Manager/Techni devon ID = [id number] for KAELYN VILLANUEVA COMPREHENSIVE METABOLIC [id number] 07:51:00 Test Item Value Reference Range Interpretation Comments TOTAL PROTEIN 6.5 gm/dL 6.0-8.3 (BEAKER) (test code = 770) ALBUMIN (BEAKER) 3.0 g/dL 3.5-5.0 L (test code = 1145) ALKALINE PHOSPHATASE 58 U/L 40-150 (BEAKER) (test code = 346) BILIRUBIN TOTAL 0.4 mg/dL 0.2-1.2 (BEAKER) (test code = 377) SODIUM (BEAKER) (test 140 meq/L 136-145 code = 381) POTASSIUM (BEAKER) 4.9 meq/L 3.5-5.1 (test code = 379) CHLORIDE (BEAKER) 106 meq/L 98-107 (test code = 382) CO2 (BEAKER) (test 29 meq/L 22-29 code = 355) BLOOD UREA NITROGEN 11 mg/dL 7-21 (BEAKER) (test code = 354) CREATININE (BEAKER) 0.80 mg/dL 0.57-1.25 (test code = 358) GLUCOSE RANDOM 154 mg/dL 70-105 H (BEAKER) (test code = 652) CALCIUM (BEAKER) 8.9 mg/dL 8.4-10.2 (test code = 697) AST (SGOT) (BEAKER) 40 U/L 5-34 H (test code = 353) ALT (SGPT) (BEAKER) 48 U/L 6-55 (test code = 347) EGFR (BEAKER) (test INSUFFIC IENT CLINICAL code = 1092) DATA TO CALCULA TE ESTIMATED GFR. Landscape Manager ID - JMPAkvkduiee3720-08-01 07:37:00 Test Item Value Reference Range Interpretation Comments Magnesium (test code = 2.0 mg/dL 1.6-2.6 80933-2) DONNIE (test code = DONNIE) Landscape Manager ID - NTP Lab Interpretation (test Normal code = 85405-4) [facility] 07:37:00 Test Item Value Reference Range Interpretation Comments MAGNESIUM (BEAKER) (test code = 2.0 mg/dL 1.6-2.6 627) Landscape Manager ID - NTPCBC W/PLT COUNT & AUTO [id number] 05:16:00 Test Item Value Reference Range Interpretation Comments WHITE BLOOD CELL COUNT (BEAKER) 9.9 K/ L 3.5-10.5 (test code = 775) RED BLOOD CELL COUNT (BEAKER) 3.98 M/ L 4.63-6.08 L (test code = 761) HEMOGLOBIN (BEAKER) (test code = 11.3 GM/DL 13.7-17.5 L 410) HEMATOCRIT (BEAKER) (test code = 35.4 % 40.1-51.0 L 411) MEAN CORPUSCULAR VOLUME (BEAKER) 88.9 fL 79.0-92.2 (test code = 753) MEAN CORPUSCULAR HEMOGLOBIN 28.4 pg 25.7-32.2 (BEAKER) (test code = 751) MEAN CORPUSCULAR HEMOGLOBIN CONC 31.9 GM/DL 32.3-36.5 L (BEAKER) (test code = 752) RED CELL DISTRIBUTION WIDTH 13.5 % 11.6-14.4 (BEAKER) (test code = 412) PLATELET COUNT (BEAKER) (test 458 K/CU MM 150-450 H code = 756) MEAN PLATELET VOLUME (BEAKER) 9.8 fL 9.4-12.4 (test code = 754) NUCLEATED RED BLOOD CELLS 0 /100 WBC 0-0 (BEAKER) (test code = 413) NEUTROPHILS RELATIVE PERCENT 78 % (BEAKER) (test code = 429) LYMPHOCYTES RELATIVE PERCENT 12 % (BEAKER) (test code = 430) MONOCYTES RELATIVE PERCENT 4 % (BEAKER) (test code = 431) EOSINOPHILS RELATIVE PERCENT 0 % (BEAKER) (test code = 432) BASOPHILS RELATIVE PERCENT 0 % (BEAKER) (test code = 437) NEUTROPHILS ABSOLUTE COUNT 7.73 K/ L 1.78-5.38 H (BEAKER) (test code = 670) LYMPHOCYTES ABSOLUTE COUNT 1.21 K/ L 1.32-3.57 L (BEAKER) (test code = 414) MONOCYTES ABSOLUTE COUNT (BEAKER) 0.42 K/ L 0.30-0.82 (test code = 415) EOSINOPHILS ABSOLUTE COUNT 0.02 K/ L 0.04-0.54 L (BEAKER) (test code = 416) BASOPHILS ABSOLUTE COUNT (BEAKER) 0.02 K/ L 0.01-0.08 (test code = 417) IMMATURE GRANULOCYTES-RELATIVE 5 % 0-1 H PERCENT (BEAKER) (test code = 2801) POCT-GLUCOSE [id number] 23:00:00 Test Item Value Reference Range Interpretation Comments POC-GLUCOSE METER 131 mg/dL 70-110 H : TESTED A T [facility] 6720 (BEAKER) (test code = [facility], 1538) [address]: Landscape Manager/Techni devon ID = [id number] for CASTRO KELLY [id number] 16:36:00 Test Item Value Reference Range Interpretation Comments Ferritin (test code = 408.49 ng/mL 5-275 H 2276-4) DONNIE (test code = DONNIE) Landscape Manager ID - BS Lab Interpretation (test Abnormal code = 09619-4) [facility] campusFERRITIN2020-07-[facility] 16:36:00 Test Item Value Reference Range Interpretation Comments FERRITIN (AKER) (test code = 408.49 ng/mL 5.00-275.00 H 361) Landscape Manager ID - BSPOCT-GLUCOSE [id number] 16:32:00 Test Item Value Reference Range Interpretation Comments POC-GLUCOSE METER 93 mg/dL 70-110 : TESTED A T [facility] 6720 (BEAKER) (test code = [facility], 1538) 565[address]: Landscape Manager/Techni devon ID = [id number] for Reshma Romero (cont ract) POCT-GLUCOSE [id number] 11:26:00 Test Item Value Reference Range Interpretation Comments POC-GLUCOSE METER 172 mg/dL 70-110 H : TESTED A T [facility] 6720 ([facility]) (test code = [facility], 1538) 738[address]: Landscape Manager/Techni devon ID = [id number] for MARISELA KHAN [id number] 10:41:00 Test Item Value Reference Range Interpretation Comments Procalcitonin (test code = 0.19 ng/mL <0.05 H 12212-6) DONNIE (test code = DONNIE) SEPSIS RISK (ng/mL)Low: 0.05-0.50Intermedi ate: 0.51-2.00High: >=2.01 Lab Interpretation (test Abnormal code = 41910-8) [facility] campusPROCALCITONIN2020-07-13 10:41:00 Test Item Value Reference Range Interpretation Comments PROCALCITONIN (BEAKER) (test code 0.19 ng/mL <0.05 H = 3036) SEPSIS RISK (ng/mL)Low: 0.05-0.50Intermediate: 0.51-2.00High: >=2.01POCT-GLUCOSE [id number] 08:54:00 Test Item Value Reference Range Interpretation Comments POC-GLUCOSE METER 120 mg/dL 70-110 H : TESTED [place]ara Hickey [facility] 6720 (BEAKER) (test code [facility], = 1538) [address]: Landscape Manager/Techni devon ID = [id number] for Reshma Romero (cont ract) Hemoglobin [id number] 07:57:00 Test Item Value Reference Range Interpretation Comments Hemoglobin A1C (test code = 4548-4) 6.4 % 4.3-6.1 H Lab Interpretation (test code = Abnormal 13825-1) [facility] campusHEMOGLOBIN [id number] 07:57:00 Test Item Value Reference Range Interpretation Comments HEMOGLOBIN A1C (BEAKER) (test code = 6.4 % 4.3-6.1 H 368) COMPREHENSIVE METABOLIC [id number] 06:00:00 Test Item Value Reference Range Interpretation Comments TOTAL PROTEIN 6.8 gm/dL 6.0-8.3 Specimen sligh tly (BEAKER) (test code = hemoly zed 770) ALBUMIN (BEAKER) 3.1 g/dL 3.5-5.0 L Specimen sl ightly (test code = 1145) hemolyzed ALKALINE PHOSPHATASE 62 U/L 40-150 (BEAKER) (test code = 346) BILIRUBIN TOTAL 0.4 mg/dL 0.2-1.2 Specimen sli ghtly (BEAKER) (test code = hemoly zed 377) SODIUM (BEAKER) (test 141 meq/L 136-145 code = 381) POTASSIUM (BEAKER) 4.5 meq/L 3.5-5.1 Specimen slightly (test code = 379) hemolyzed CHLORIDE (BEAKER) 110 meq/L 98-107 H (test code = 382) CO2 (BEAKER) (test 24 meq/L 22-29 code = 355) BLOOD UREA NITROGEN 13 mg/dL 7-21 (BEAKER) (test code = 354) CREATININE (BEAKER) 0.76 mg/dL 0.57-1.25 Specimen slightly (test code = 358) hemolyzed GLUCOSE RANDOM 145 mg/dL 70-105 H (BEAKER) (test code = 652) CALCIUM (BEAKER) 8.8 mg/dL 8.4-10.2 (test code = 697) AST (SGOT) (BEAKER) 43 U/L 5-34 H Specimen slightly (test code = 353) hemolyzed ALT (SGPT) (BEAKER) 55 U/L 6-55 Specimen slightly (test code = 347) hemolyzed EGFR (BEAKER) (test INSUFFIC IENT CLINICAL code = 1092) DATA TO CALCULA TE ESTIMATED GFR. Landscape Manager VINNIE DISLA LC-Reactive [id number] 05:13:00 Test Item Value Reference Range Interpretation Comments CRP (test code = 676) 3.23 mg/dL 0-0.5 H DONNIE (test code = DONNIE) Landscape Manager VINNIE DISLA L Lab Interpretation (test Abnormal code = 09131-8) [facility]MAGNESIUM2020-07-13 05:13:00 Test Item Value Reference Range Interpretation Comments MAGNESIUM (BEAKER) 2.1 mg/dL 1.6-2.6 Specimen slightly (test code = 627) hemolyzed Landscape Manager VINNIE DISLA LC-REACTIVE [id number] 05:13:00 Test Item Value Reference Range Interpretation Comments C-REACTIVE PROTEIN (BEAKER) (test 3.23 mg/dL 0.00-0.50 H code = 676) Landscape Manager VINNIE DISLA JB-[id number] 04:49:00 Test Item Value Reference Range Interpretation Comments D-Dimer, Quant (test code 2.16 <0.50 MG/L FEU H = 71565-5) DONNIE (test code = DONNIE) Intended Use: The D-Dimer Assay can be used to aid in the diagnosis of Deep Vein Thrombosis (DVT) and Pulmonary Embolism Disease (PED).In patients with low pre-test probability, various studies concerning STA Liatest D-dimer test have reported that with a cutoff value of 0.50 MG/L FEU, the Negative Predictive Value (NPV) regarding the exclusion of thrombosis is within 95-100% range. Lab Interpretation (test Abnormal code = 16776-9) [facility] campusD-[id number] 04:49:00 Test Item Value Reference Range Interpretation Comments D-DIMER QUANTITATIVE (BEAKER) 2.16 MG/L FEU <0.50 H (test code = 671) Intended Use: The D-Dimer Assay can be used to aid in the diagnosis of Deep Vein Thrombosis (DVT) and Pulmonary Embolism Disease (PED).In patients with low pre- test probability, various studies concerning STA Liatest D-dimer test have reported that with a cutoff value of 0.50 MG/L FEU, the Negative Predictive Value (NPV) regarding the exclusion of thrombosis is within 95-100% range. Prothrombin time/[id number] 04:45:00 Test Item Value Reference Range Interpretation Comments Protime (test code = 15.0 11.9- 14.2 H 5902-2) seconds INR (test code = 1.2 <=5.9 6301-6) DONNIE (test code = DONNIE) Effective 07/16/2018: PT Reference Range ChangeNew: 11.9-14.2 Previous: 11.7-14.7 RECOMMENDED COUMADIN/WARFARIN INR THERAPY RANGESSTANDARD DOSE: 2.0-3.0 Includes: PROPHYLAXIS for venous thrombosis, systemic embolization; TREATMENT for venous thrombosis and/or pulmonary embolus.HIGH RISK: Target INR is 2.5-3.5 for patients wiht mechanical heart valves. Lab Interpretation Abnormal (test code = 17329-6) [facility] campusPROTHROMBIN TIME/[id number] 04:45:00 Test Item Value Reference Range Interpretation Comments PROTIME (BEAKER) (test code = 15.0 seconds 11.9-14.2 H 759) INR (BEAKER) (test code = 370) 1.2 <=5.9 Effective 07/16/2018: PT Reference Range ChangeNew: 11.9-14.2 Previous: 11.7- 14.7RECOMMENDED COUMADIN/WARFARIN INR THERAPY RANGESSTANDARD DOSE: 2.0-3.0 Includes: PROPHYLAXIS for venous thrombosis, systemic embolization; TREATMENT for venous thrombosis and/or pulmonary embolus.HIGH RISK: Target INR is2.5-3.5 for patients wiht mechanical heart valves.CBC W/PLT COUNT & AUTO [id number] 04:44:00 Test Item Value Reference Range Interpretation Comments WHITE BLOOD CELL COUNT (BEAKER) 10.9 K/ L 3.5-10.5 H (test code = 775) RED BLOOD CELL COUNT (BEAKER) 4.02 M/ L 4.63-6.08 L (test code = 761) HEMOGLOBIN (BEAKER) (test code = 11.4 GM/DL 13.7-17.5 L 410) HEMATOCRIT (BEAKER) (test code = 35.9 % 40.1-51.0 L 411) MEAN CORPUSCULAR VOLUME (BEAKER) 89.3 fL 79.0-92.2 (test code = 753) MEAN CORPUSCULAR HEMOGLOBIN 28.4 pg 25.7-32.2 (BEAKER) (test code = 751) MEAN CORPUSCULAR HEMOGLOBIN CONC 31.8 GM/DL 32.3-36.5 L (BEAKER) (test code = 752) RED CELL DISTRIBUTION WIDTH 13.6 % 11.6-14.4 (BEAKER) (test code = 412) PLATELET COUNT (BEAKER) (test 485 K/CU MM 150-450 H code = 756) MEAN PLATELET VOLUME (BEAKER) 10.0 fL 9.4-12.4 (test code = 754) NUCLEATED RED BLOOD CELLS 0 /100 WBC 0-0 (BEAKER) (test code = 413) NEUTROPHILS RELATIVE PERCENT 82 % (BEAKER) (test code = 429) LYMPHOCYTES RELATIVE PERCENT 11 % (BEAKER) (test code = 430) MONOCYTES RELATIVE PERCENT 4 % (BEAKER) (test code = 431) EOSINOPHILS RELATIVE PERCENT 0 % (BEAKER) (test code = 432) BASOPHILS RELATIVE PERCENT 0 % (BEAKER) (test code = 437) NEUTROPHILS ABSOLUTE COUNT 8.88 K/ L 1.78-5.38 H (BEAKER) (test code = 670) LYMPHOCYTES ABSOLUTE COUNT 1.18 K/ L 1.32-3.57 L (BEAKER) (test code = 414) MONOCYTES ABSOLUTE COUNT (BEAKER) 0.38 K/ L 0.30-0.82 (test code = 415) EOSINOPHILS ABSOLUTE COUNT 0.01 K/ L 0.04-0.54 L (BEAKER) (test code = 416) BASOPHILS ABSOLUTE COUNT (BEAKER) 0.03 K/ L 0.01-0.08 (test code = 417) IMMATURE GRANULOCYTES-RELATIVE 4 % 0-1 H PERCENT (BEAKER) (test code = 2808) POCT-GLUCOSE [id number] 21:33:00 Test Item Value Reference Range Interpretation Comments POC-GLUCOSE METER 118 mg/dL 70-110 H : TESTED A T [facility] 6720 ([place]) (test code = [place], 1538) [address]: Landscape Manager/Techni devon ID = [id number] for LYNSEY SELF 2D Echo W/Doppler(CW/PW/Color)2019-08-30 17:35:29Ejection FractionSLEH ECHO HEARTLAB MKCKESSON CPACSInterface, External Ris In - 08/30/2019 5:35 PM C DTTransthoracic Echocardiography Report (TTE) Demographics Patient Name HUMBERTO GOMEZ Date of Study 08/30/2019 SOBEIDA Gender Male Visit Number [id number] Race Unknown Room Number 7212 Number Date of 1960 Referring Physician Scott Fraser Age 59 year(s) Outreach Specialist Octavia Adams, [facility] Gas Dispenser Daphne Buck Interpreting Susi Barrera MD Procedure Type of Study TTE procedure:2DECHO W DOPPLER(CW/PW/COLOR) (Routine) Indications:Shortness of br eath.Clinical HistorySuspected COVID19+, PNA, Acute hypoxic respiratory failure, DOEHGB 12.1HCT 38.2%Height: 68 inches Weight: 120.66 kg (266 lbs) BSA: 2.31 m^2 BMI: 40.44kg/m^2HR: 76 bpm BP: 140/97 mmHg Summary 1. Noremal LV size and function. Estimated LVEF is normal (55-60%) . All of the LV segments contract normally. 2. Normal RV size and function. 3. Unable to estimate peak systolic PA pressure. 4. No significant valve disease detected. Previous Study No prior exam available for comparison. Signature Findings Technical Quality: Good visualization Left Ventricle Limited study. The left ventricle is chamber size (by PSLAX dimension) is normal (male - LVIDd 4.2-5.8cm) . Normal LV wall thick ness. All of the LV segments contract normally . Global LV systolic function normal . Estimated LVEF by qualitative assessment is normal (55- 60%) . LV endocardium is adequately visualizedwith IV ultrasound enhancing agent. Left Atrium LA size is normal(16-34 ml/m2) . Right Ventricle The right ventricular chamber size and systolic function are within normal limits. Right Atrium RA cavity size is normal . Aortic Valve AoV thickening primarily involves the right- coronary cups(s). AoV cusp mobility is normal . Mitral Valve Mild MV leaflet thic kening. Mild mitral annular calcification. Trace mitral regurgitation. Tricuspid Valve TV structure is normal. Unable to estimate peak systolic PA pressure; inadequate TR velocity signal. A trace of tricuspid regurgitation. Pulmonic Valve PV is not well visualized; function appears normal by Doppler visualized. Aorta Aortic root size (SInus of Valsalva diameter) is normal . Pericardium No significant pericardial effusion is visualized. IVC/SVC/PA/PV/Pleural The estimated RA pressure by IVC dynamics 5- 10mmHg . Chambers/Structures Left Atrium LA Volume: 66.8 ml LA Area: 22.39 cm^2 LA Vol. Index: 29 ml/m^2 Left Ventricle LVIDd: 4.73 cm LVEDV:151.45 ml LV Septum Diastolic: 1.06 cm LV PW Diastolic: 1.03 cm Right Ventricle RVOT VTI: 11.43 cm Aorta Ao Root S of Cecilia.: 3.16 [facility] [id number] 17:01:00 Test Item Value Reference Range Interpretation Comments POC-GLUCOSE METER 109 mg/dL 70-110 : TESTED A T [facility] 6720 ([place]) (test code = [place], 1538) [address]: Landscape Manager/Techni devon ID = [id number] for AYSHA RODRIGUEZ POCT-GLUCOSE [id number] 11:41:00 Test Item Value Reference Range Interpretation Comments POC-GLUCOSE METER 131 mg/dL 70-110 H : TESTED Sahara T [facility] 6720 (BEAKER) (test code = [place], 1538) [address]: Landscape Manager/Techni devon ID = [id number] for AYSHA RODRIGUEZ CBC W/PLT COUNT & AUTO [id number] 09:58:00 Test Item Value Reference Range Interpretation Comments WHITE BLOOD CELL COUNT (BEAKER) 10.9 K/ L 3.5-10.5 H (test code = 775) RED BLOOD CELL COUNT (BEAKER) 4.39 M/ L 4.63-6.08 L (test code = 761) HEMOGLOBIN (BEAKER) (test code = 12.1 GM/DL 13.7-17.5 L 410) HEMATOCRIT (BEAKER) (test code = 38.2 % 40.1-51.0 L 411) MEAN CORPUSCULAR VOLUME (BEAKER) 87.0 fL 79.0-92.2 (test code = 753) MEAN CORPUSCULAR HEMOGLOBIN 27.6 pg 25.7-32.2 (BEAKER) (test code = 751) MEAN CORPUSCULAR HEMOGLOBIN CONC 31.7 GM/DL 32.3-36.5 L (BEAKER) (test code = 752) RED CELL DISTRIBUTION WIDTH 13.5 % 11.6-14.4 (BEAKER) (test code = 412) PLATELET COUNT (BEAKER) (test 499 K/CU MM 150-450 H code = 756) MEAN PLATELET VOLUME (BEAKER) 9.5 fL 9.4-12.4 (test code = 754) NUCLEATED RED BLOOD CELLS 0 /100 WBC 0-0 (BEAKER) (test code = 413) (CELLAVISION MANUAL DIFF)2019-08-30 09:58:00 Test Item Value Reference Range Interpretation Comments NEUTROPHILS - REL 77 % (CELLAVISION)(BEAKER) (test code = 2816) LYMPHOCYTES - REL 9 % (CELLAVISION)(BEAKER) (test code = 2817) MONOCYTES - REL 6 % (CELLAVISION)(BEAKER) (test code = 2818) METAMYELOCYTES - REL 2 % 0-0 H (CELLAVISION)(BEAKER) (test code = 2821) MYELOCYTES - REL 1 % 0-0 H (CELLAVISION)(BEAKER) (test code = 2822) BANDS - REL (CELLAVISION)(BEAKER) 2 % 0-10 (test code = 2826) ATYPICAL LYMPHOCYTES - REL 2 % 0-0 H (CELLAVISION)(BEAKER) (test code = 2829) NEUTROPHILS - ABS 8.39 K/ul 1.78-5.38 H (CELLAVISION)(BEAKER) (test code = 2830) LYMPHOCYTES - ABS 0.98 K/ul 1.32-3.57 L (CELLAVISION)(BEAKER) (test code = 2831) MONOCYTES - ABS 0.65 K/uL 0.30-0.82 (CELLAVISION)(BEAKER) (test code = 2832) METAMYELOCYTES - ABS 0.22 K/uL 0.00-0.00 H (CELLAVISION)(BEAKER) (test code = 2836) MYELOCYTES-ABS 0.11 K/uL 0.00-0.00 H (CELLAVISION)(BEAKER) (test code = 2837) BANDS - ABS (CELLAVISION)(BEAKER) 0.22 K/uL 0.00-0.80 (test code = 2840) ATYPICAL LYMPHOCYTES - ABS 0.22 K/uL 0.00-0.00 H (CELLAVISION)(BEAKER) (test code = 2858) TOTAL COUNTED (BEAKER) (test code = 100 1351) PLT MORPHOLOGY (BEAKER) (test code Normal = 486) TOXIC GRANULATION (BEAKER) (test Present code = 771) POLYCHROMATOPHILLIC RBCS(BEAKER) 1+ few (test code = 478) HYPOCHROMIA (BEAKER) (test code = 1+ few 963) ARTIFACT (CELLAVISION)(BEAKER) Present (test code = 3432) PLATELET CONCENTRATION Increased (CELLAVISION)(BEAKER) (test code = 3438) Landscape Manager ID - jenny Kern comments: Slide comments:SARS-COV2/RT-PCR ([facility])2019-08-30 08:51:00 Test Item Value Reference Range Interpretation Comments SARS-COV2/RT-PCR (test Not Detected Not Detected, Negative code = 7886559) SARS-COV-[address] [facility] (test code = 4493356) Negative results do not preclude SARS-CoV-2 infection and should not be used as the sole basis for patient management decisions. Negative results must be combined with clinical observations, patient history, and epidemiological information. A false negative result may occur if a specimen is improperly collected, transported or handled.The limit of detection for this assay is 250 copies/mL.This SARS CoV-2 test is a rapid, real-time RT-PCR test intended for the qualitative detection of nucleic acid from SARS-CoV-2 in a nasopharyngeal swab specimen collected from individuals suspected of COVID-19 by their healthcare provider.This test has not been Food and Drug [...] is revoked under Section 564(g) of the Act.Fact Sheet for Healthcare Pro viders:https://www.Yippy.OpenStudy/Documents/Xpert%20Xpress%20SARS%20CoV-2/Fact%20Sh eets/302-3802%86OELC-WDM-1%20HEALTHCARE%20PROVIDERS%20FACT%20SHEET.pdfFact Sheet for Healthcare Patients:https://www.Nextnav.OpenStudy/Documents/Xpert%20Xpress%20SARS%20CoV-2/Fact%20Sheets/302-3801%20SARS-COV -2%20PATIENT%20FACT%20SHEET.pdfPerforming Laboratory:[facility], [place] [address]Whrsoiamqq antigen, [id number] 08:27:00 Test Item Value Reference Range Interpretation Comments Legionella Urine Negative - see Negative for L. Antigen (test code comment pneumophi la = 18943-2) serogroup 1 ant igen, suggesting no r ecent or current infe ction with this serog roup. Legionellosis c annot be ruled out si nce other serogroup s and species may cau se disease. [facility] campusLEGIONELLA ANTIGEN, [id number] 08:27:00 Test Item Value Reference Range Interpretation Comments L. PNEUMOPHILA Negative - see Negative fo r L. SEROGP 1 UR AG comment pneumophila (BEAKER) (test code serogrou p 1 antigen, = 1156) suggesting no r ecent or current infe ction with this serog roup. Legionellosis c annot be ruled out si nce other serogroup s and species may cau se disease. Strep pneumoniae [id number] 08:26:00 Test Item Value Reference Range Interpretation Comments Strep pneumoniae Presumptive negative Presumptive Antigen (test code = [place] 620[address]-7) pneumonia - see pneumococcal comment pneumonia - see comment, Presumptive negative for pneumococcal meningitis DONNIE (test code = DONNIE) Presumptive negative for pneumococcal pneumonia, suggesting no current or recent pneumococcal infection. Infection due to S. pneumoniae cannot be ruled out since the antigen present in the sample may be below the detection limit of the test. Lab Interpretation Normal (test code = 49940-0) [facility] [id number] 08:26:00 Test Item Value Reference Range Interpretation Comments STREP PNEUMONIAE Presumptive negative Presumptive negative ANTIGEN (BEAKER) for pneumococcal for pneumococcal (test code = 1615) pneumonia - see pneumonia - see comment commen Presumptive negative for pneumococcal pneumonia, suggesting no current or recent pneumococcal infection. Infection due to S. pneumoniae cannot be ruled out since the antigen present in the sample may be below the detection limit of the test. Urinalysis w/Microscopic + Reflex to [id number] 07:37:00 Test Item Value Reference Range Interpretation Comments Color, UA (test code = Yellow 5778-6) Clarity, UA (test code = Clear 5767-9) Specific [place], UA (test 1.030 1.001-1.035 code = 5811-5) pH, UA (test code = 6.0 5.0-8.0 5803-2) Protein, UA (test code = 200 mg/dL Negative A 55874-8) Glucose, UA (test code = Negative Negative 365) Ketones, UA (test code = Trace Negative A 2514-8) Bilirubin, UA (test code = Negative Negative 96214-2) Blood, UA (test code = Negative Negative 50609-2) Nitrite, UA (test code = Negative Negative 5802-4) Leukocytes, UA (test code Negative Negative = 5799-2) Urobilinogen, UA (test 0.2 mg/dL 0.2-1 code = 47659-3) RBC, UA (test code = <1 /HPF 37319-1) WBC, UA (test code = 2 /HPF 5821-4) Mucus (test code = 8247-9) Rare Squam Epithel, UA (test <1 /HPF code = 41155-1) Specimen Source (test code = 2795) DONNIE (test code = DONNIE) Landscape Manager ID - [auto]Landscape Manager ID - tech Lab Interpretation (test Abnormal code = 45191-4) [facility]URINALYSIS W/ REFLEX URINE [id number] 07:37:00 Test Item Value Reference Range Interpretation Comments COLOR (BEAKER) (test code = 470) Yellow CLARITY (BEAKER) (test code = 469) Clear SPECIFIC GRAVITY UA (BEAKER) (test 1.030 1.001-1.035 code = 468) PH UA (BEAKER) (test code = 467) 6.0 5.0-8.0 PROTEIN UA (BEAKER) (test code = 200 mg/dL Negative A 464) GLUCOSE UA (BEAKER) (test code = Negative Negative 365) KETONES UA (BEAKER) (test code = Trace Negative A 371) BILIRUBIN UA (BEAKER) (test code = Negative Negative 462) BLOOD UA (BEAKER) (test code = 461) Negative Negative NITRITE UA (BEAKER) (test code = Negative Negative 465) LEUKOCYTE ESTERASE UA (BEAKER) Negative Negative (test code = 466) UROBILINOGEN UA (BEAKER) (test code 0.2 mg/dL 0.2-1.0 = 463) RBC UA (BEAKER) (test code = 519) < /HPF WBC UA (BEAKER) (test code = 520) 2 /HPF MUCUS (BEAKER) (test code = 1574) Rare SQUAMOUS EPITHELIAL (BEAKER) (test < /HPF code = 516) SOURCE(BEAKER) (test code = 2795) Landscape Manager ID - [auto]Landscape Manager ID - techCOMPREHENSIVE METABOLIC [id number] 04:53:00 Test Item Value Reference Range Interpretation Comments TOTAL PROTEIN 7.6 gm/dL 6.0-8.3 (BEAKER) (test code = 770) ALBUMIN (BEAKER) 3.3 g/dL 3.5-5.0 L (test code = 1145) ALKALINE PHOSPHATASE 73 U/L 40-150 (BEAKER) (test code = 346) BILIRUBIN TOTAL 0.4 mg/dL 0.2-1.2 (BEAKER) (test code = 377) SODIUM (BEAKER) (test 142 meq/L 136-145 code = 381) POTASSIUM (BEAKER) 3.9 meq/L 3.5-5.1 (test code = 379) CHLORIDE (BEAKER) 108 meq/L 98-107 H (test code = 382) CO2 (BEAKER) (test 24 meq/L 22-29 code = 355) BLOOD UREA NITROGEN 12 mg/dL 7-21 (BEAKER) (test code = 354) CREATININE (BEAKER) 0.81 mg/dL 0.57-1.25 (test code = 358) GLUCOSE RANDOM 172 mg/dL 70-105 H (BEAKER) (test code = 652) CALCIUM (BEAKER) 9.0 mg/dL 8.4-10.2 (test code = 697) AST (SGOT) (BEAKER) 47 U/L 5-34 H (test code = 353) ALT (SGPT) (BEAKER) 56 U/L 6-55 H (test code = 347) EGFR (BEAKER) (test INSUFFIC IENT CLINICAL code = 1092) DATA TO CALCULA TE ESTIMATED GFR. Landscape Manager ID Fabián DISLA LCreatine Kinase (CK)2019-08-30 04:37:00 Test Item Value Reference Range Interpretation Comments Total CK (test code = 63 U/L 29-200 2157-6) DONNIE (test code = DONNIE) Landscape Manager ID - NAIF L Lab Interpretation (test Normal code = 94989-7) [facility]MAGNESIUM[facility] 04:37:00 Test Item Value Reference Range Interpretation Comments MAGNESIUM (BEAKER) (test code = 2.3 mg/dL 1.6-2.6 627) Landscape Manager ID Fabián DISLA LCREATINE KINASE (CK)2019-08-30 04:37:00 Test Item Value Reference Range Interpretation Comments CREATINE KINASE TOTAL (BEAKER) (test 63 U/L 29-200 code = 380) Landscape Manager ID - NAIF LBlood gas, [id number] 04:35:00 Test Item Value Reference Range Interpretation Comments pH, Arterial (test code = 2744-1) 7.46 7.35-7.45 H pCO2, Arterial (test code = 36 35- 45 mmHg 2019-8) pO2, Arterial (test code = 2703-7) 107 80- 90 mmHg H O2 Sat, Arterial (test code = 98.1 % 96-97 H 2708-6) HCO3, Arterial (test code = 25 mmol/L 21-29 1960-4) Base Excess, Arterial (test code = 1.6 mmol/L -2-3 1925-7) Patient Temperature (test code = 37.5 C 8310-5) FIO2 (test code = 1819) 50 % Lab Interpretation (test code = Abnormal 02429-1) [facility]OOD GAS, [id number] 04:35:00 Test Item Value Reference Range Interpretation Comments PH ARTERIAL (BEAKER) (test code = 7.46 7.35-7.45 H 383) PCO2 ARTERIAL (BEAKER) (test code 36 mmHg 35-45 = 384) PO2 ARTERIAL (BEAKER) (test code = 107 mmHg 80-90 H 385) O2 SATURATION ARTERIAL (BEAKER) 98.1 % 96.0-97.0 H (test code = 386) HCO3 ARTERIAL (BEAKER) (test code 25 mmol/L 21-29 = 388) BASE EXCESS ARTERIAL (BEAKER) 1.6 mmol/L -2.0-3.0 (test code = 387) PATIENT TEMPERATURE (BEAKER) (test 37.5 C code = 1818) FIO2 (BEAKER) (test code = 1819) 50.0 % Respiratory Panel [id number] 20:19:00 Test Item Value Reference Range Interpretation Comments Human Metapneumovirus Not detected Not detected, (test code = 63560-6) Equivocal Rhinovirus (test code = Not detected Not detected, 56222-3) Equivocal INFLUENZA A (NO Not detected Not detected, SUBTYPE) (test code = Equivocal 77069-5) Influenza A subtype H1 (test code = 01279-0) Influenza A Subtype H3 (test code = 62149-5) Influenza A Subtype H1-2009 (test code = 99896-5) Influenza B (test code Not detected Not detected, = 95589-3) Equivocal Respiratory Syncytial Not detected Not detected, Virus (test code = Equivocal 83216-6) Parainfluenza Virus 1 Not detected Not detected, (test code = 31151-2) Equivocal Parainfluenza Virus 2 Not detected Not detected, (test code = 68980-9) Equivocal Parainfluenza virus 3 Not detected Not detected, (test code = 21036-2) Equivocal Parainfluenza Virus 4 Not detected Not detected, (test code = 80157-6) Equivocal Adenovirus (test code = Not detected Not detected, 86311-2) Equivocal Coronavirus 229E (test Not detected Not detected, code = 94720-1) Equivocal Coronavirus HKU1 (test Not detected Not detected, code = 58430-7) Equivocal Coronavirus NL63 (test Not detected Not detected, code = 36383-9) Equivocal Coronavirus OC43 (test Not detected Not detected, code = 27559-9) Equivocal Bordetella Pertussis Not detected Not detected, (test code = 63962-6) Equivocal Chlamydophila Not detected Not detected, Pneumoniae (test code = Equivocal 77860-3) Mycoplasma Pneumoniae Not detected Not detected, (test code = 09233-3) Equivocal DONNIE (test code = DONNIE) Other viruses and bacteria not targeted by this PCR panel cannot be excluded; therefore clinical correlation and follow up of serology, culture results, and other molecular studies is required. The results are not intended to be used as the sole means for clinical diagnosis or patient management decisions. This sample was tested at the [facility] Molecular Diagnostics Laboratory using the [employer] Respiratory Panel. It is FDA cleared and has been verified and approved by the [facility] Molecular Diagnostics Laboratory for clinical use on nasopharyngeal swab specimens. The performance of the FilmArray RP has not been established in individuals who received influenza vaccine. Recent administration of a nasal influenza vaccine may cause false positive results for Influenza A and/orInfluenza B. [facility] campusRESPIRATORY PANEL [id number] 20:19:00 Test Item Value Reference Range Interpretation Comments HUMAN METAPNEUMOVIRUS Not detected Not detected, (BEAKER) (test code = 2683) Equivocal RHINOVIRUS (BEAKER) (test Not detected Not detected, code = 2684) Equivocal INFLUENZA A (BEAKER) (test Not detected Not detected, code = 2685) Equivocal INFLUENZA A (NO SUBTYPE) (test code = 3606) INFLUENZA A SUBTYPE H1 (BEAKER) (test code = 2686) INFLUENZA A SUBTYPE H3 (BEAKER) (test code = 2687) INFLUENZA A SUBTYPE H1-2009 (BEAKER) (test code = 3198) INFLUENZA B (BEAKER) (test Not detected Not detected, code = 2688) Equivocal RESPIRATORY SYNCYTIAL VIRUS Not detected Not detected, (BEAKER) (test code = 3199) Equivocal PARAINFLUENZA VIRUS 1 Not detected Not detected, (BEAKER) (test code = 2691) Equivocal PARAINFLUENZA VIRUS 2 Not detected Not detected, (BEAKER) (test code = 2692) Equivocal PARAINFLUENZA VIRUS 3 Not detected Not detected, (BEAKER) (test code = 2693) Equivocal PARAINFLUENZA VIRUS 4 Not detected Not detected, (BEAKER) (test code = 3200) Equivocal ADENOVIRUS (BEAKER) (test Not detected Not detected, code = 2694) Equivocal CORONAVIRUS 229E (BEAKER) Not detected Not detected, (test code = 3201) Equivocal CORONAVIRUS HKU1 (BEAKER) Not detected Not detected, (test code = 3202) Equivocal CORONAVIRUS NL63 (BEAKER) Not detected Not detected, (test code = 3203) Equivocal CORONAVIRUS OC43 (BEAKER) Not detected Not detected, (test code = 3204) Equivocal BORDETELLA PERTUSSIS Not detected Not detected, (BEAKER) (test code = 3205) Equivocal CHLAMYDOPHILA PNEUMONIAE Not detected Not detected, (BEAKER) (test code = 3206) Equivocal MYCOPLASMA PNEUMONIAE Not detected Not detected, (BEAKER) (test code = 3207) Equivocal Other viruses and bacteria not targeted by this PCR panel cannot be excluded; therefore clinical correlation and follow up of serology, culture results, and other molecular studies is required. The results are not intended to be used as the sole means for clinical diagnosis or patient management decisions. This sample was tested at the [facility] Molecular Diagnostics Laboratory using the [employer] Respiratory Panel. It is FDA cleared and has been verified and approved by the [facility] Molecular Diagnostics Laboratory for clinical use on nasopharyngeal swab specimens.The performance of the FilmArrayRP has not been established in individuals who received influenza vaccine. Recent administration ofa nasal influenza vaccine may cause false positive results for Influenza A and/orInfluenza B.T4, [id number] 20:10:00 Test Item Value Reference Range Interpretation Comments Free T4 (test code = 3024-7) 1.05 ng/dL 0.7-1.48 DONNIE (test code = DONNIE) Landscape Manager ID - DB Lab Interpretation (test Normal code = 58318-6) [facility] campusT4, [id number] 20:10:00 Test Item Value Reference Range Interpretation Comments FREE T4 (BEAKER) (test code = 655) 1.05 ng/dL 0.70-1.48 Landscape Manager ID - [id number] 19:35:00 Test Item Value Reference Range Interpretation Comments PROCALCITONIN (BEAKER) (test code 0.08 ng/mL <0.05 H = 3036) SEPSIS RISK (ng/mL)Low: 0.05-0.50Intermediate: 0.51-2.00High: >=2.01TSH/Free T4 If [id number] 19:34:00 Test Item Value Reference Range Interpretation Comments TSH (test code = 42193-2) 0.322 0.350- 4.940 uIU/mL L DONNIE (test code = DONNIE) Landscape Manager ID - DB Lab Interpretation (test Abnormal code = 72151-6) [facility] campusTSH/FREE T4 IF [id number] 19:34:00 Test Item Value Reference Range Interpretation Comments THYROID STIMULATING HORMONE 0.322 uIU/mL 0.350-4.940 L (BEAKER) (test code = 772) Landscape Manager ID - DBHIV-1 Antigen with HIV-1/2 [id number] 19:32:00 Test Item Value Reference Range Interpretation Comments HIV-1 Antigen with HIV 1&2 Nonreactive Nonreactive Antibody (test code = 94729-3) DONNIE (test code = DONNIE) Landscape Manager ID - DB Lab Interpretation (test Normal code = 40892-4) [facility]HIV-[facility] ANTIGEN WITH HIV-1/2 [id number] 19:32:00 Test Item Value Reference Range Interpretation Comments HIV-1 ANTIGEN WITH HIV 1\T\2 Nonreactive Nonreactive ANTIBODY (2) (BOWEN) (test code = 2586) Landscape Manager ID - DBSARS-COV2/RT-PCR ([facility])2019-08-29 19:27:00 Test Item Value Reference Range Interpretation Comments SARS-COV2/RT-PCR (test Not Detected Not Detected, Negative code = 6685744) SARS-COV-[address] [facility] (test code = 1512235) Negative results do not preclude SARS-CoV-2 infection and should not be used as the sole basis for patient management decisions. Negative results must be combined with clinical observations, patient history, and epidemiological information. A false negative result may occur if a specimen is improperly collected, transported or handled.The limit of detection for this assay is 250 copies/mL.This SARS CoV-2 test is a rapid, real-time RT-PCR test intended for the qualitative detection of nucleic acid from SARS-CoV-2 in a nasopharyngeal swab specimen collected from individuals suspected of COVID-19 by their healthcare provider.This test has not been Food and Drug [...] is revoked under Section 564(g) of the Act.Fact Sheet for Healthcare Pro viders:https://www.e[employer]ruction [employer]/Documents/Xpert%20Xpress%20SARS%20CoV-2/Fact%20Sh eets/506-9464%20MJGN-TGS-2%20HEALTHCARE%20PROVIDERS%20FACT%20SHEET.pdfFact Sheet for Healthcare Patients:https://www.[employer]/Documents/Xpert%20Xpress%20SARS%20CoV-2/Fact%20Sheets/302-8774%20SARS-COV -2%20PATIENT%20FACT%20SHEET.pdfPerforming Laboratory:[facility], [place] [id number] 19:26:00 Test Item Value Reference Range Interpretation Comments MAGNESIUM (BEAKER) (test code = 2.3 mg/dL 1.6-2.6 627) Landscape Manager ID - DB(CELLAVISION MANUAL DIFF)2019-08-29 19:25:00 Test Item Value Reference Range Interpretation Comments NEUTROPHILS - REL 90 % (CELLAVISION)(BEAKER) (test code = 2816) LYMPHOCYTES - REL 8 % (CELLAVISION)(BEAKER) (test code = 2817) MONOCYTES - REL 1 % (CELLAVISION)(BEAKER) (test code = 2818) MYELOCYTES - REL 1 % 0-0 H (CELLAVISION)(BEAKER) (test code = 2822) ATYPICAL LYMPHOCYTES - REL 1 % 0-0 H (CELLAVISION)(BEAKER) (test code = 2829) NEUTROPHILS - ABS 6.75 K/ul 1.78-5.38 H (CELLAVISION)(BEAKER) (test code = 2830) LYMPHOCYTES - ABS 0.60 K/ul 1.32-3.57 L (CELLAVISION)(BEAKER) (test code = 2831) MONOCYTES - ABS 0.08 K/uL 0.30-0.82 L (CELLAVISION)(BEAKER) (test code = 2832) MYELOCYTES-ABS 0.08 K/uL 0.00-0.00 H (CELLAVISION)(BEAKER) (test code = 2837) ATYPICAL LYMPHOCYTES - ABS 0.08 K/uL 0.00-0.00 H (CELLAVISION)(BEAKER) (test code = 2858) TOTAL COUNTED (BEAKER) (test code 100 = 1351) SMUDGE CELLS (BEAKER) (test code Present = 1371) GIANT PLATELETS (BEAKER) (test Present code = 313) POLYCHROMATOPHILLIC RBCS(BEAKER) 3+ many (test code = 478) ANISOCYTOSIS (BEAKER) (test code 2+ moderate = 961) MACROCYTES (BEAKER) (test code = 2+ moderate 964) ARTIFACT (CELLAVISION)(BEAKER) Present (test code = 3432) PLATELET CONCENTRATION Increased (CELLAVISION)(BEAKER) (test code = 3438) Landscape Manager ID - jenny Kern comments: Slide comments:POCT-GLUCOSE METER 2019-08-29 19:15:00 Test Item Value Reference Range Interpretation Comments POC-GLUCOSE METER 166 mg/dL 70-110 H : TESTED A T [facility] 6720 (BEAKER) (test code = TRICIA RAMOS [place], 1538) [address]: Landscape Manager/Techni devon ID = [id number] for CHIRINOS FFAR, LETY Thromboelastograph (TEG)2019-08-29 19:02:00 Test Item Value Reference Range Interpretation Comments TEG Activated Clotting Time (test 4.8 4.0- 7.0 minutes code = 63792-8) TEG Fibrinogen Activity (test 77.2 61.0- 73.0 degrees H code = 01369-2) TEG Platelet Aggregation (test 81.8 55.0- 65.0 MM H code = 29166-8) TEG Fibrinolysis (test code = 0.0 % 0-5 67300-7) TEG-H Activated Clotting Time 4.8 4.0- 7.0 minutes (test code = 1411) TEG-H Fibrinogen Activity (test 80.2 61.0- 73.0 degrees H code = 1412) TEG-H Platelet Aggregation (test 86.4 55.0- 65.0 MM H code = 1413) TEG-H Fibrinolysis (test code = 0.0 % 0-5 1414) Lab Interpretation (test code = Abnormal 86852-0) [facility] campusTHROMBOELASTOGRAPH (TEG)2019-08-29 19:02:00 Test Item Value Reference Range Interpretation Comments TEG ACTIVATED CLOTTING TIME 4.8 minutes 4.0-7.0 (BEAKER) (test code = 1407) TEG FIBRINOGEN ACTIVITY (BEAKER) 77.2 degrees 61.0-73.0 H (test code = 1408) TEG PLT. AGGREGATION (BEAKER) 81.8 MM 55.0-65.0 H (test code = 1409) TEG FIBRINOLYSIS (BEAKER) (test 0.0 % 0.0-5.0 code = 1410) TGH ACTIVATED CLOTTING TIME 4.8 minutes 4.0-7.0 (BEAKER) (test code = 1411) TGH FIBRINOGEN ACTIVITY (BEAKER) 80.2 degrees 61.0-73.0 H (test code = 1412) TGH PLT. AGGREGATION (BEAKER) 86.4 MM 55.0-65.0 H (test code = 1413) TGH FIBRINOLYSIS (BEAKER) (test 0.0 % 0.0-5.0 code = 1414) B-type Natriuretic Factor (BNP)2019-08-29 18:59:00 Test Item Value Reference Range Interpretation Comments BNP (test code = 99488-1) 17 pg/mL 0-100 DONNIE (test code = DONNIE) Landscape Manager ID Fabián DELGADO M Lab Interpretation (test Normal code = 37238-0) [facility] campusB-TYPE NATRIURETIC FACTOR (BNP)2019-08-29 18:59:00 Test Item Value Reference Range Interpretation Comments B-TYPE NATRIURETIC PEPTIDE (BEAKER) 17 pg/mL 0-100 (test code = 700) Landscape Manager ID Fabián DELGADO [id number] 18:40:00 Test Item Value Reference Range Interpretation Comments FERRITIN (BEAKER) (test code = 750.48 ng/mL 5.00-275.00 H 361) Landscape Manager ID Fabián DELGADO MCOMPREHENSIVE METABOLIC [id number] 18:39:00 Test Item Value Reference Range Interpretation Comments TOTAL PROTEIN 7.6 gm/dL 6.0-8.3 (BEAKER) (test code = 770) ALBUMIN (BEAKER) 3.3 g/dL 3.5-5.0 L (test code = 1145) ALKALINE PHOSPHATASE 76 U/L 40-150 (BEAKER) (test code = 346) BILIRUBIN TOTAL 0.4 mg/dL 0.2-1.2 (BEAKER) (test code = 377) SODIUM (BEAKER) (test 142 meq/L 136-145 code = 381) POTASSIUM (BEAKER) 4.0 meq/L 3.5-5.1 (test code = 379) CHLORIDE (BEAKER) 108 meq/L 98-107 H (test code = 382) CO2 (BEAKER) (test 26 meq/L 22-29 code = 355) BLOOD UREA NITROGEN 11 mg/dL 7-21 (BEAKER) (test code = 354) CREATININE (BEAKER) 0.73 mg/dL 0.57-1.25 (test code = 358) GLUCOSE RANDOM 170 mg/dL 70-105 H (BEAKER) (test code = 652) CALCIUM (BEAKER) 9.1 mg/dL 8.4-10.2 (test code = 697) AST (SGOT) (BEAKER) 63 U/L 5-34 H (test code = 353) ALT (SGPT) (BEAKER) 63 U/L 6-55 H (test code = 347) EGFR (BEAKER) (test INSUFFIC IENT CLINICAL code = 1092) DATA TO CALCULA TE ESTIMATED GFR. Landscape Manager ID - DANNY [id number] 18:37:00 Test Item Value Reference Range Interpretation Comments Fibrinogen (test code = 3255-7) 1107 mg/dl 225-434 H Lab Interpretation (test code = Abnormal 88331-9) [facility] campusFIBRINOGEN2020-07-11 18:37:00 Test Item Value Reference Range Interpretation Comments FIBRINOGEN LEVEL (BEAKER) (test 1107 mg/dl 225-434 H code = 658) [id number] 18:37:00 Test Item Value Reference Range Interpretation Comments D-DIMER QUANTITATIVE (BEAKER) 3.90 MG/L FEU <0.50 H (test code = 671) Intended Use: The D-Dimer Assay can be used to aid in the diagnosis of Deep Vein Thrombosis (DVT) and Pulmonary Embolism Disease (PED).In patients with low pre- test probability, various studies concerning STA Liatest D-dimer test have reported that with a cutoff value of 0.50 MG/L FEU, the Negative Predictive Value (NPV) regarding the exclusion of thrombosis is within 95-100% range. Lactate dehydrogenase (LDH)2019-08-29 18:25:00 Test Item Value Reference Range Interpretation Comments LDH (test code = 2532-0) 359 U/L 125-220 H DONNIE (test code = DONNIE) Landscape Manager ID - DANNY M Lab Interpretation (test Abnormal code = 10817-1) [facility] campusTroponin [id number] 18:25:00 Test Item Value Reference Range Interpretation Comments Troponin I (test code = <0.01 0-0.03 73933-7) DONNIE (test code = DONNIE) Troponin I (TnI) levels must be interpreted in the context of the presenting symptoms and the clinical findings. Elevated TnI levels indicate myocardial damage, but are not specific for ischemic heart disease. Elevated TnI levels are seen in patients with other cardiac conditions (including myocarditis and congestive heart failure), and slight TnI elevations occur in patients with other conditions, including sepsis, renal failure, acidosis, acute neurological disease, and persistent tachyarrhythmia.Rosa Ma tor VINNIE [place] Lab Interpretation (test Normal code = 87857-4) [facility] campusTROPONIN [id number] 18:25:00 Test Item Value Reference Range Interpretation Comments TROPONIN I (BEAKER) (test code = 397) < ng/mL 0.00-0.03 Troponin I (TnI) levels must be interpreted in the context of the presenting symptoms and the clinical findings. Elevated TnI levels indicate myocardial damage, but are not specific for ischemic heart disease. Elevated TnI levels are seen in patients with other cardiac conditions (including myocarditis and congestive heart failure), and slight TnI elevations occur in patients with other conditions, including sepsis, renal failure, acidosis, acute neurological disease, and persistent tachyarrhythmia.Landscape Manager VINNIE DELGADO MLACTATE DEHYDROGENASE (LDH)2019-08-29 18:25:00 Test Item Value Reference Range Interpretation Comments LACTATE DEHYDROGENASE (BEAKER) (test 359 U/L 125-220 H code = 635) Landscape Manager VINNIE DELGADO MC-REACTIVE [id number] 18:25:00 Test Item Value Reference Range Interpretation Comments C-REACTIVE PROTEIN (BEAKER) (test 14.89 mg/dL 0.00-0.50 H code = 676) Landscape Manager VINNIE DELGADO MLactic acid, [id number] 18:18:00 Test Item Value Reference Range Interpretation Comments Lactate, Venous (test code 0.98 mmol/L 0.5-2.2 = 2872) DONNIE (test code = DONNIE) Landscape Manager VINNIE [place] Lab Interpretation (test Normal code = 94316-3) [facility] campusLACTIC ACID, [id number] 18:18:00 Test Item Value Reference Range Interpretation Comments LACTATE BLOOD VENOUS (2) (BEAKER) 0.98 mmol/L 0.50-2.20 (test code = 2872) Landscape Manager VINNIE DELGADO MRapid Influenza A&B [id number] 18:12:00 Test Item Value Reference Range Interpretation Comments Rapid Influenza A Antigen Negative Negative, Inconclusive (test code = 80197-7) Rapid influenza B Antigen Negative Negative, Inconclusive (test code = 72517-7) Lab Interpretation (test code Normal = 68176-9) [facility] campusRAPID INFLUENZA A&B [id number] 18:12:00 Test Item Value Reference Range Interpretation Comments RAPID INFLUENZA A AG (BEAKER) Negative Negative, Inconclusive (test code = 1622) RAPID INFLUENZA B AG (BEAKER) Negative Negative, Inconclusive (test code = 1623) PROTHROMBIN TIME/[id number] 18:08:00 Test Item Value Reference Range Interpretation Comments PROTIME (BEAKER) (test code = 15.2 seconds 11.9-14.2 H 759) INR (BEAKER) (test code = 370) 1.2 <=5.9 Effective 07/16/2018: PT Reference Range ChangeNew: 11.9-14.2 Previous: 11.7- 14.7RECOMMENDED COUMADIN/WARFARIN INR THERAPY RANGESSTANDARD DOSE: 2.0-3.0 Includes: PROPHYLAXIS for venous thrombosis, systemic embolization; TREATMENT for venous thrombosis and/or pulmonary embolus.HIGH RISK: Target INR is2.5-3.5 for patients wiht mechanical heart valves.CBC W/PLT COUNT & AUTO [id number] 18:04:00 Test Item Value Reference Range Interpretation Comments WHITE BLOOD CELL COUNT (BEAKER) 7.5 K/ L 3.5-10.5 (test code = 775) RED BLOOD CELL COUNT (BEAKER) 4.42 M/ L 4.63-6.08 L (test code = 761) HEMOGLOBIN (BEAKER) (test code = 12.1 GM/DL 13.7-17.5 L 410) HEMATOCRIT (BEAKER) (test code = 38.1 % 40.1-51.0 L 411) MEAN CORPUSCULAR VOLUME (BEAKER) 86.2 fL 79.0-92.2 (test code = 753) MEAN CORPUSCULAR HEMOGLOBIN 27.4 pg 25.7-32.2 (BEAKER) (test code = 751) MEAN CORPUSCULAR HEMOGLOBIN CONC 31.8 GM/DL 32.3-36.5 L (BEAKER) (test code = 752) RED CELL DISTRIBUTION WIDTH 13.6 % 11.6-14.4 (BEAKER) (test code = 412) PLATELET COUNT (BEAKER) (test 493 K/CU MM 150-450 H code = 756) MEAN PLATELET VOLUME (BEAKER) 10.0 fL 9.4-12.4 (test code = 754) NUCLEATED RED BLOOD CELLS 0 /100 WBC 0-0 (BEAKER) (test code = 413) RAD, CHEST, 1 VIEW, NON [id number] 17:29:00Post-intubationReason for exam:- >pneumonia,?COVID pneumoniaShould this be performed at the bedside?->Yes FINAL REPORT Chest, one view History: Pneumonia Comparison: none Findings:Bilateral patchy airspace disease, right greater than left. Normal size heart. No pleural effusion or pneumothorax. Impression:Bilateral patchy airspace disease, right greater than left. This is concerning for multifocal pneumonia. Signed: Romeo Fernando Verified Date/Time: 08/29/2019 17:29:19 Reading Location: [facility] C013W Consult Reading Room XR chest 1 view portable / [id number] 17:29:00Interface, External Ris In - 08/29/2019 5:31 PM CDTFINAL REPORT Chest, one view History: Pneumonia Comparison: none Findings:Bilateral patchy airspace disease, right greater than left. Normal size heart. No pleural effusion or pneumothorax. Impression:Bilateral patchy airspace disease, right greater than left. This is concerning for multifocal pneumonia. Signed: Romeo Fernando Verified Date/Time: 08/29/2019 17:29:19 Reading Location: [facility] B1 C013W Consult Reading Room [facility]
--- OUTSIDE RECORDS SUMMARY | 2019-12-14 12:54 | XMS REPORT | Summary of Care ---
:1960 Author Organization [facility] [place] [address] Care Team Providers Name Role Phone Unavailable Primary Care Provider Unavailable Reason for Visit Reason Comments Medical Concern follow up from hospital Encounter Details Date Type Department Care Team Description 10/06/2019 Office Visit [facility] Joana Toribio ica Concern Medicine MD Marina (follow up from Otolaryngology [address] [place] [address] ) [address] [place] [address] [address] [place] [address] Allergies No Known Allergiesdocumented as of this encounter (statuses as of 10/14/2019) Medications Medication Sig Dispensed Refills Start Date End Date Status doxycycline Take 1 Cap by 28 Cap 0 10/06/2019 10/20/2019 Ac tive (VIBRAMYCIN) 100 MG mouth two times capsule daily for 14 days. documented as of this encounter (statuses as of 10/14/2019) Active Problems Not on filedocumented as of this encounter (statuses as of 10/14/2019) Social History Tobacco Use Types Packs/Day Years Used Date Never Smoker Smokeless Tobacco: Never Used Alcohol Use Drinks/Week oz/Week Comments Yes Sex Assigned at Date Recorded Not on file documented as of this encounter Last Filed Vital Signs Vital Sign Reading Time Taken Comments Blood Pressure 130/78 10/06/2019 8:49 AM CDT Pulse 80 10/06/2019 8:49 AM CDT Temperature 36.4 C (97.6 F) 10/06/2019 8:49 AM CDT Respiratory Rate - - Oxygen Saturation - - Inhaled Oxygen Concentration - - Weight 120.2 kg (265 lb) 10/06/2019 8:49 AM CDT Height 172.7 cm (5' 8") 10/06/2019 8:49 AM CDT Body Mass Index 40.29 10/06/2019 8:49 AM CDT documented in this encounter Progress Notes Joana Toribio MD - 10/06/2019 9:15 AM CDTI saw and evaluated the patient with Dr. Loo and agree with her assessment and plan. Marie tristan - 10/06/2019 9:15 AM CDT Chief Complaint Patient presents with Medical Concern follow up from hospital Referral: Self Referral History of Present Illness: Jorge Ramírez is a 59 y.o. male here today for hospital f/u due to submandibular gland stone and enlargement. Patient was admitted 08/30 to [facility] for treatment of pneumonia and found to have R submandibular duct stone within the gland measuring 2.8cm at OSH prior to admiss ion. Treated with steroids and antibiotic course and discharged on home O2 therapy which he continues to use today. States he has noted R submandibular swelling for the past 4 months. Denies any pain or tenderness inthe area, denies any dry mouth. States then when swellign is particularly bad, he has difficulty swallowing solids>liquids. Lost 10-15 lbs while admitteed to hospital, has since gained it back. Smokes an occasional cigar, denies any other tobacco use. Past Medical History: No past medical history on file. Past Surgical History: Back surgery, years ago No past surgical history on file. Allergies: Patient has no known allergies. Medication: No outpatient medications have been marked as taking for the 10/06/19 encounter (Office Visit) with Joana Toribio MD. No current outpatient medications on file prior to visit. No current facility-administered medications on file prior to visit. Social History: Social History Tobacco Use Smoking status: Never Smoker Smokeless tobacco: Never Used Substance Use Topics Alcohol use: Yes Drug use: Not on file otherwise non-contributory to this illness Family History: Reviewed and non-contributory Review of Systems: See HPI; otherwise remaining systems negative Physical Exam: BP 130/78 | Pulse 80 | Temp 97.6 F (36.4 C) | Ht 5' 8" (1.727 m) | Wt 265 lb (120.2 kg) | BMI 40.29 kg/m General: Well-developed/groomed/nourished. Strong voice and conversant throughout examination. Skin: No suspicious lesions. Ears: EAC clear, TMI. Hearing intact. Eyes: EOMI bilaterally, conjugate gaze. No discharge, no significant injection. Nose/[facility]: Anterior rhinoscopy: no masses or drainage. Oral cavity: Lips, teeth, gums, buccal cavity, hard palate without lesions, masses or trismus. Tongue symmetric. Palpation of submandibular gland expresses clear salivary secretions Oropharynx: Tonsillar fossa, soft palate, and base of tongue intact without masses. Hypopharynx: Visualized and appears normal. Larynx: Bilateral true vocal cords mobile, arytenoid intact. Neck: Thyroid not enlarged. Full ROM. R submandibular gland enlargement, non tender to palpation. No palpable LAD. Respiratory: No audible wheezing, no rib retractions, unlabored and symmetric. CV: Palpable pulses. Neuro: Cranial nerves II-XII intact bilaterally. No focal deficits. Psych: A&O x 3. Normal affect. Assessment: Jorge Ramírez is a 59 y.o. male here today for hospital f/u due to 2.8cm submandibular gland stone and enlargement. Pt currently does not have insurance and is not a [facility] resident. We willoffer conservative management at this time and plan for surgical intervention at a future date when patient has insurance. Pt states he has appointment with [employer] and is applying for Medicaid. Plan: -Doxycycline 100mg x14 days - Will need PCP clearance for surgery- re-printed his PCP information today to set up an appointment - Instructed patient to contact the clinic when he has more information regarding his insurance and PCP follow up -Discussed surgical management of submandibular gland stone. Explained that he will likely need a small incision in the neck to excise his submandibular gland, given that the stone is within the gland.He will likely need drain placement and overnight hospital stay. Discussed risks benefits and alternatives of the surgery. Patient expresses understanding and would like to proceed with surgery once hehas insurance and PCP clearance. Marie Loo Resident Physician documented in this encounter Plan of Treatment Health Maintenance Due Date Last Done Comments COLON CANCER SCREENING: COLONOSCOPY 1960 TETANUS SHOT (ADULT) 01/29/1975 BMI FOLLOW UP PLAN 01/29/1978 HEPATITIS C SCREENING 01/29/1978 ZOSTER VACCINE (1 of 2) 01/29/2010 FLU VACCINE > 6 MONTHS 09/19/2019 HIV SCREENING Completed 08/29/2019 documented as of this encounter Results Not on filedocumented in this encounter Visit Diagnoses Diagnosis Sialolithiasis - Primary documented in this encounter
--- OUTSIDE RECORDS SUMMARY | 2019-12-14 12:54 | XMS REPORT | Summary of Care ---
:1960 Author Organization [facility] Address [address] [place] [address] Care Team Providers Name Role Phone Pcp, Patient Does Not Have A Primary Care Provider +[id number] 0-0000 Encounter Details Date Type Department Care Team Description 11/19/2019 Orders Only [facility] Doctor Unassigned, No [address] [facility] [place] [address] [address] [place] [address] Allergies Not on Filedocumented as of this encounter (statuses as of 11/19/2019) Medications Not on filedocumented as of this encounter (statuses as of 11/19/2019) Active Problems Not on filedocumented as of this encounter (statuses as of 11/19/2019) Social History Tobacco Use Types Packs/Day Years Used Date Never Assessed Sex Assigned at Date Recorded Not on file documented as of this encounter Last Filed Vital Signs Not on filedocumented in this encounter Plan of Treatment Health Maintenance Due Date Last Done Comments HEPATITIS C (HCV) SCREEN 1960 Depression Screening 1972 DTaP,Tdap,and Td Vaccines (1 - 01/29/1979 Tdap) COLON CANCER SCREENING ANNUAL 01/29/2010 FIT/FOBT COLON CANCER SCREENING FIT DNA 01/29/2010 EVERY 3 YEARS COLON CANCER SCREENING 01/29/2010 SIGMOIDOSCOPY EVERY 5 YEARS COLONOSCOPY 01/29/2010 Colorectal Cancer Screening 01/29/2010 Zoster Recombinant Vaccine 01/29/2010 (SHINGRIX) (1 of 2) INFLUENZA VACCINE (#1) 2019 PNEUMOCOCCAL 0-64 YEARS COMBINED Aged Out No longer eligible based on SERIES patient's age to complete this topic documented as of this encounter Procedures Procedure Name Priority Date/Time Associated Diagnosis Comme nts CONSENT/REFUSAL FOR Routine 11/19/2019 3:23 PM DIAGNOSIS AND TREATMENT CDT ASSIGNMENT OF BENEFITS Routine 11/19/2019 3:23 PM CDT documented in this encounter Results Not on filedocumented in this encounter
--- OUTSIDE RECORDS SUMMARY | 2019-12-14 12:54 | XMS REPORT | Summary of Care ---
:1960 Author Organization [facility] Address [address] [place] [address] Care Team Providers Name Role Phone Pcp, Patient Does Not Have A Primary Care Provider +1-000-00 0-0000 Reason for Referral (Routine) Status Reason Specialty Diagnoses / Referred By Referred To Procedures Contact Contact New Request Sleep Disorder Diagnoses Dyspnea on exertion Slick Brantley, Diagnostic Procedures SLEEP STUDY, ATTENDED DO [address] [place], [place] [phone] MRI/CAT Scan (Routine) Status Reason Specialty Diagnoses / Referred By Referred To Procedures Contact Contact New Request Diagnostic Diagnoses Dyspnea on exertion Slick Brantley, Radiology Procedures CT THORAX WO CONTRAST DO [address] [place] [phone] (Routine) Status Reason Specialty Diagnoses / Referred By Referred To Procedures Contact Contact New Request Pulmonary Function Diagnoses Dyspnea on exertion Slick Brantley, Technologist Procedures SIX MINUTE WALK Preferred Location: [facility] DO [address] [place] [phone] (Routine) Status Reason Specialty Diagnoses / Referred By Referred To Procedures Contact Contact New Request Pulmonary Function Diagnoses Dyspnea on exertion Slick Brantley, Technologist Procedures DIAGNOSTIC PROCEDURE Preferred Location: [facility] DO [address] [place] [phone] Reason for Visit Reason Comments New Patient Establish Care Wanting to get off oxygen Shortness of Breath (Routine) Status Reason Specialty Diagnoses / Referred By Referred To Procedures Contact Contact Closed Pulmonary Disease Diagnoses Dependence on supplemental oxygen Personal history of other diseases of the respiratory system Debbie Diaz Procedures CONSULT/REFERRAL PULMONARY [address] [place] [address] Encounter Details Date Type Department Care Team Description 11/19/2019 Office Visit [facility] Slick Brantley DO Dyspnea on exertion Pulmonary Clinic [address] [facility] (Primary Dx) [address] [place] [address] , [facility] [address] [place] [phone] Allergies No Known Allergiesdocumented as of this encounter (statuses as of 11/19/2019) Medications Medication Sig Dispensed Refills Start Date End Date Status allopurinoL 100 mg Take 100 mg by 0 Active tablet mouth daily. documented as of this encounter (statuses as of 11/19/2019) Active Problems Not on filedocumented as of this encounter (statuses as of 11/19/2019) Social History Tobacco Use Types Packs/Day Years Used Date Never Smoker Smokeless Tobacco: Never Used Sex Assigned at Date Recorded Not on file COVID-19 Exposure Response Date Recorded In the last month, have you been in contact with No / Unsure 11/19/2019 3:38 PM CDT someone who was confirmed or suspected to have Coronavirus / COVID-19? documented as of this encounter Last Filed Vital Signs Vital Sign Reading Time Taken Comments Blood Pressure 132/87 11/19/2019 3:42 PM CDT Pulse 76 11/19/2019 3:40 PM CDT Temperature - - Respiratory Rate 18 11/19/2019 3:40 PM CDT Oxygen Saturation 98% 11/19/2019 3:40 PM CDT Inhaled Oxygen Concentration - - Weight 129.3 kg (285 lb) 11/19/2019 3:40 PM CDT Height 172.7 cm (5' 8") 11/19/2019 3:40 PM CDT Body Mass Index 43.33 11/19/2019 3:40 PM CDT documented in this encounter Progress Notes Slick Brantley DO - 11/19/2019 3:00 PM CDT [facility] Inter[facility] Pulmonology [facility] Chief Complaint: Shortness of breath History of Present Illness: Jorge Ramírez is a 59 year old male with dyspnea on exertion that has beengoing on for a few months now. Was in the hospital because of shortness of breath and they thought he likely had novel coronavirus infection but tested negative. Gets short of breath with routine exertion. Improved with rest. No leg swelling noted. Past Medical History: None Past Surgical History: Back surgery Family History: family history includes Diabetes in his mother. Social History: reports that he has never smoked. He has never used smokeless tobacco. Review of Systems: Review of Systems Constitutional: Positive for fatigue. HENT: Negative. Eyes: Negative. Respiratory: Positive for shortness of breath. Cardiovascular: Negative. Gastrointestinal: Negative. Genitourinary: Negative. Musculoskeletal: Negative. Skin: Negative. Neurological: Negative. Psychiatric/Behavioral: Negative. Endocrine: Endocrine negative Objective: BP 132/87 | Pulse 76 | Resp 18 | Ht 5' 8" (1.727 m) | Wt 285 lb (129.3 kg) | SpO2 98% | BMI 43.33 kg/m Physical Exam Constitutional: He is oriented to person, place, and time. He appears well- developed and well-nourished. HENT: Head: Normocephalic and atraumatic. Eyes: Conjunctivae and EOM are normal. Neck: Normal range of motion. Neck supple. Cardiovascular: Normal rate and regular rhythm. Pulmonary/Chest: Effort normal and breath sounds normal. Abdominal: Soft. Bowel sounds are normal. Musculoskeletal: Normal range of motion. Neurological: He is alert and oriented to person, place, and time. Skin: Skin is warm and dry. Psychiatric: He has a normal mood and affect. His behavior is normal. Judgment and thought content normal. Labs/Studies: CXR bilateral patchy opacities 08/29/2019 Assessment: ICD-10-CM ICD-9-CM 1. Dyspnea on exertion R06.00 786.09 Unclear etiology Likely has CADEN May have ILD Plan: 1. Obtain PFT and 6MW 2. Obtain CT scan of thorax 3. Obtain sleep study documented in this encounter Plan of Treatment Name Type Priority Associated Order Schedule Diagnoses DIAGNOSTIC PROCEDURE PULMONARY FUNCTION Routine Dyspnea on exe rtion Ordered: Preferred Location: LAB 10/01/20 20 [facility] SIX MINUTE WALK PULMONARY FUNCTION Routine Dyspnea on exertion Ordered: Preferred Location: LAB 11/19/19 [address] [facility] [address] THORAX WO IMAGING Routine Dyspnea on exertion Expected : CONTRAST 11/19/2019, Expires: 11/18/2020 SLEEP STUDY, PROCEDURES Routine Dyspnea on exertion Ordered: ATTENDED 11/19/2019 Health Maintenance Due Date Last Done Comments HEPATITIS C (HCV) SCREEN 1960 Depression Screening 1972 DTaP,Tdap,and Td Vaccines ( - 01/29/1979 Tdap) COLON CANCER SCREENING ANNUAL [...] this topic documented as of this encounter Results Not on filedocumented in this encounter Visit Diagnoses Diagnosis Dyspnea on exertion - Primary Other dyspnea and respiratory abnormalit y documented in this encounter
--- OUTSIDE RECORDS SUMMARY | 2019-12-14 12:54 | XMS REPORT | Summary of Care ---
:1960 Author Organization [facility] Address [address] [place] [address] Care Team Providers Name Role Phone Pcp, Patient Does Not Have A Primary Care Provider +1-000-00 0-0000 Reason for Referral (Routine) Status Reason Specialty Diagnoses / Referred By Referred To Procedures Contact Contact New Request Sleep Disorder Diagnoses Dyspnea on exertion Slick Brantley, Diagnostic Procedures SLEEP STUDY, ATTENDED DO [address] [place], [place] [phone] MRI/CAT Scan (Routine) Status Reason Specialty Diagnoses / Referred By Referred To Procedures Contact Contact New Request Diagnostic Diagnoses Dyspnea on exertion Slick Brantley, Radiology Procedures CT THORAX WO CONTRAST DO [address] [place] [phone] (Routine) Status Reason Specialty Diagnoses / Referred By Referred To Procedures Contact Contact New Request Pulmonary Function Diagnoses Dyspnea on exertion Slick Brantley, Technologist Procedures SIX MINUTE WALK Preferred Location: [facility] DO [address] [place] [phone] (Routine) Status Reason Specialty Diagnoses / Referred By Referred To Procedures Contact Contact New Request Pulmonary Function Diagnoses Dyspnea on exertion Slick Brantley, Technologist Procedures DIAGNOSTIC PROCEDURE Preferred Location: [facility] DO [address] [place] [phone] Reason for Visit Reason Comments New Patient Establish Care Wanting to get off oxygen Shortness of Breath (Routine) Status Reason Specialty Diagnoses / Referred By Referred To Procedures Contact Contact Closed Pulmonary Disease Diagnoses Dependence on supplemental oxygen Personal history of other diseases of the respiratory system Debbie Diaz Procedures CONSULT/REFERRAL PULMONARY [address] [place] [address] Encounter Details Date Type Department Care Team Description 11/19/2019 Office Visit [facility] Slick Brantley DO Dyspnea on exertion Pulmonary Clinic [address] [facility] (Primary Dx) [address] [place] [address] , [facility] [address] [place] [phone] Allergies No Known Allergiesdocumented [...] Brantley DO - 11/19/2019 3:00 PM CDT [facility] Interventional Pulmonology Clinic Chief Complaint: Shortness [...]
[2019-12-14] MEDS ORDERED: METHOCARBAMOL 1,000 MG/10 ML VIAL IV ONE (13:57)
[2019-12-14] MEDS ORDERED: dexAMETHasone 4 MG/ML VIAL ONE (13:57)
[2019-12-14] MEDS ORDERED: KETOROLAC 30 MG/ML INJ ONE (13:58)
[2019-12-14] MEDS ORDERED: NA CHLORIDE 0.9% 100 ML IV ONE (13:58)
--- NOTE | 2019-12-14 15:55 | ER ---
Nurse's Notes [facility] Name: Jorge Ramírez Age: 59 yrs Sex: Male : 1960 Arrival Date: 12/14/2019 Time: 12:52 Bed 26 [facility] MD: Diagnosis: Low back pain;Radiculopathy, lumbar region Presentation: 12/13 12:52 Chief complaint: EMS states: "About for a week now the pt has been reporting lower back jd3 pain that comes down into his hip and down through his right leg.". Coronavirus screen: At this time, the client does not indicate any symptoms associated with coronavirus-19. Ebola Screen: Patient negative for fever greater than or equal to 101.5 degrees Fahrenheit, and additional compatible Ebola Virus Disease symptoms. Initial Sepsis Screen: Does the patient meet any 2 criteria? No. Patient's initial sepsis screen is negative. Does the patient have a suspected source of infection? No. Patient's initial sepsis screen is negative. Risk Assessment: Do you want to hurt yourself or someone else? Patient reports no desire to harm self or others. Onset of symptoms was December 07, 2019. 12:52 Method Of Arrival: EMS: [facility] jd3 12:52 Acuity: EDDIE 3 jd3 Historical: - Allergies: 12:54 No Known Allergies; jd3 - Home Meds: 12:54 allopurinol Oral [Active]; jd3 - PMHx: 12:54 Gout; jd3 - PSHx: 12:54 back; jd3 - Immunization history:: Adult Immunizations unknown. - Social history:: Smoking status: Patient denies any tobacco usage or history of. Screenin:55 Abuse screen: Denies threats or abuse. Nutritional screening: No deficits noted. jd3 Tuberculosis screening: No symptoms or risk factors identified. Fall Risk Ambulatory Aid- Crutches/Cane/Walker (15 pts). Gait- Normal/Bed Rest/Wheelchair (0 pts) Mental Status- Oriented to own ability (0 pts). Total Gupta Fall Scale indicates No Risk (0-24 pts). Assessment: 12:54 General: Appears in no apparent distress. uncomfortable, Behavior is calm, cooperative, jd3 appropriate for age. Pain: Complains of pain in low back area, pelvis and right leg Quality of pain is described as aching, Aggravated by increased activity, repositioning. Neuro: Level of Consciousness is awake, alert, obeys commands, Oriented to person, place, time, situation. Cardiovascular: Denies chest pain, Capillary refill < 3 seconds Patient's skin is warm and dry. Respiratory: Airway is patent Respiratory effort is even, unlabored, Respiratory pattern is regular, symmetrical, Denies cough, shortness of breath. GI: No signs and/or symptoms were reported involving the gastrointestinal system. : No signs and/or symptoms were reported regarding the genitourinary system. EENT: No signs and/or symptoms were reported regarding the EENT system. Derm: Skin is intact, Skin is dry, Skin is normal, Skin temperature is warm. Musculoskeletal: Circulation, motion, and sensation intact. Range of motion: intact in all extremities. 14:21 Reassessment: Patient appears in no apparent distress at this time. No changes from jd3 previously documented assessment. Patient and/or family updated on plan of care and expected duration. Pain level reassessed. Patient is alert, oriented x 3, equal unlabored respirations, skin warm/dry/pink. 16:47 Reassessment: Patient appears in no apparent distress at this time. No changes from jd3 previously documented assessment. Patient and/or family updated on plan of care and expected duration. Pain level reassessed. Patient is alert, oriented x 3, equal unlabored respirations, skin warm/dry/pink. pt reported understanding of discharge instructions, awaiting ride for discharge. Vital Signs: 12:54 BP 150 / 87; Pulse 85; Resp 17 S; Temp 98.2(O); Pulse Ox 99% on R/A; Weight 122.47 kg jd3 (R); Height 5 ft. 8 in. (172.72 cm) (R); Pain 8/10; 14:20 BP 146 / 85; Pulse 78; Resp 17 S; Pulse Ox 100% on R/A; jd3 16:48 BP 138 / 89; Pulse 76; Resp 16 S; Pulse Ox 100% on R/A; jd3 12:54 Body Mass Index 41.05 (122.47 kg, 172.72 cm) jd3 ED Course: 12:52 Patient arrived in ED. jd3 12:53 Triage completed. jd3 12:54 Arm band placed on. jd3 12:55 Allen Johnson PA is PHCP. jr8 12:55 Erwin Domínguez MD is Attending Physician. jr8 12:55 Patient has correct armband on for positive identification. Bed in low position. Call jd3 light in reach. Side rails up X2. Pulse ox on. NIBP on. 13:37 Pedro Gonzalez RN is Primary Nurse. jd3 13:42 Inserted saline lock: 20 gauge in left antecubital area, using aseptic technique. jd3 16:48 No provider procedures requiring assistance completed. IV discontinued, intact, jd3 bleeding controlled, No redness/swelling at site. Pressure dressing applied. Administered Medications: 13:54 Drug: Robaxin 1 grams Route: IVPB; Infused Over: 1 hrs; Site: left antecubital; jd3 14:50 Follow up: Response: No adverse reaction; IV Status: Completed infusion; IV Intake: jd3 100ml 13:54 Drug: TORadol - Ketorolac 15 mg Route: IVP; Site: left antecubital; jd3 14:50 Follow up: Response: No adverse reaction jd3 13:54 Drug: Decadron - Dexamethasone 10 mg Route: IVP; Site: left antecubital; jd3 14:50 Follow up: Response: No adverse reaction jd3 15:49 Drug: morphine 4 mg Route: IVP; Site: left antecubital; jd3 16:45 Follow up: Response: No adverse reaction; RASS: Alert and Calm (0) jd3 Intake: 14:50 IV: 100ml; Total: 100ml. jd3 Outcome: 15:54 Discharge ordered by . jr8 16:48 Discharged to home via wheelchair, with family. jd3 16:48 Condition: stable 16:48 Discharge instructions given to patient, Instructed on discharge instructions, follow up and referral plans. medication usage, Demonstrated understanding of instructions, follow-up care, medications, Prescriptions given X 3. 17:01 Patient left the ED. jd3 Signatures: Allen Johnson PA PA jr8 Pedro Gonzalez, RN RN jd3
--- NOTE | 2019-12-14 15:55 | EDPHYS ---
Physician Documentation [facility] Name: Jorge Ramírez Age: 59 yrs Sex: Male : 1960 Arrival Date: 12/14/2019 Time: 12:52 Bed 26 Private MD: ED Physician Erwin Domínguez HPI: 12/13 13:12 This 59 yrs old Black Male presents to ER via EMS with complaints of Low back pain. jr8 13:12 Patient presents for R low back pain radiating down R hip and R thigh x 1 week. The jr8 patient states that his only history is back surgery 15 years ago. Denies any trauma/injury. States he has been using crutches to walk around at home. Denies use of any medication. Describes pain as "sharp pain shooting down my right thigh". Denies loss of bowl or bladder or numbness/tingling. . 15:50 The patient has not recently seen a physician. jr8 Historical: - Allergies: 12:54 No Known Allergies; jd3 - Home Meds: 12:54 allopurinol Oral [Active]; jd3 - PMHx: 12:54 Gout; jd3 - PSHx: 12:54 back; jd3 - Immunization history:: Adult Immunizations unknown. - Social history:: Smoking status: Patient denies any tobacco usage or history of. ROS: 15:50 Eyes: Negative for injury, pain, redness, and discharge, ENT: Negative for injury, jr8 pain, and discharge, Neck: Negative for injury, pain, and swelling, Cardiovascular: Negative for chest pain, palpitations, and edema, Respiratory: Negative for shortness of breath, cough, wheezing, and pleuritic chest pain, Abdomen/GI: Negative for abdominal pain, nausea, vomiting, diarrhea, and constipation, MS/Extremity: Negative for injury and deformity, Skin: Negative for injury, rash, and discoloration, Neuro: Negative for headache, weakness, numbness, tingling, and seizure. 15:50 Back: Positive for pain at rest, pain with movement, radiated pain, of the low back area. Exam: 15:50 Eyes: Pupils equal round and reactive to light, extra-ocular motions intact. Lids and jr8 lashes normal. Conjunctiva and sclera are non-icteric and not injected. Cornea within normal limits. Periorbital areas with no swelling, redness, or edema. ENT: Nares patent. No nasal discharge, no septal abnormalities noted. Tympanic membranes are normal and external auditory canals are clear. Oropharynx with no redness, swelling, or masses, exudates, or evidence of obstruction, uvula midline. Mucous membranes moist. Neck: Trachea midline, no thyromegaly or masses palpated, and no cervical lymphadenopathy. Supple, full range of motion without nuchal rigidity, or vertebral point tenderness. No Meningismus. Cardiovascular: Regular rate and rhythm with a normal S1 and S2. No gallops, murmurs, or rubs. Normal PMI, no JVD. No pulse deficits. Respiratory: Lungs have equal breath sounds bilaterally, clear to auscultation and percussion. No rales, rhonchi or wheezes noted. No increased work of breathing, no retractions or nasal flaring. Abdomen/GI: Soft, non-tender, with normal bowel sounds. No distension or tympany. No guarding or rebound. No evidence of tenderness throughout. Skin: Warm, dry with normal turgor. Normal color with no rashes, no lesions, and no evidence of cellulitis. MS/ Extremity: Pulses equal, no cyanosis. Neurovascular intact. Full, normal range of motion. Neuro: Awake and alert, GCS 15, oriented to person, place, time, and situation. Cranial nerves II-XII grossly intact. Motor strength 5/5 in all extremities. Sensory grossly intact. Cerebellar exam normal. Normal gait. 15:50 Back: pain, that is moderate, of the low back area, ROM is painful, normal spinal alignment noted, CVA tenderness, is absent, vertebral tenderness, is not appreciated, Straight leg raises: left lower extremity illicits pain, at 30 degrees. Vital Signs: 12:54 BP 150 / 87; Pulse 85; Resp 17 S; Temp 98.2(O); Pulse Ox 99% on R/A; Weight 122.47 kg jd3 (R); Height 5 ft. 8 in. (172.72 cm) (R); Pain 8/10; 14:20 BP 146 / 85; Pulse 78; Resp 17 S; Pulse Ox 100% on R/A; jd3 16:48 BP 138 / 89; Pulse 76; Resp 16 S; Pulse Ox 100% on R/A; jd3 12:54 Body Mass Index 41.05 (122.47 kg, 172.72 cm) jd3 MDM: 13:05 Patient medically screened. [facility] 15:50 Data reviewed: vital signs, nurses notes, and as a result, I will discharge patient. jr8 Data interpreted: Pulse oximetry: on room air is 100 %. Interpretation: normal. Counseling: I had a detailed discussion with the patient and/or guardian regarding: the historical points, exam findings, and any diagnostic results supporting the discharge/admit diagnosis, the need for outpatient follow up, a family practitioner, to return to the emergency department if symptoms worsen or persist or if there are any questions or concerns that arise at home. Response to treatment: the patient's symptoms have mildly improved after treatment. 12/13 13:11 Order name: IV; Complete Time: 13:42 jr8 Administered Medications: 13:54 Drug: Robaxin 1 grams Route: IVPB; Infused Over: 1 hrs; Site: left antecubital; jd3 14:50 Follow up: Response: No adverse reaction; IV Status: Completed infusion; IV Intake: jd3 100ml 13:54 Drug: TORadol - Ketorolac 15 mg Route: IVP; Site: left antecubital; jd3 14:50 Follow up: Response: No adverse reaction jd3 13:54 Drug: Decadron - Dexamethasone 10 mg Route: IVP; Site: left antecubital; jd3 14:50 Follow up: Response: No adverse reaction jd3 15:49 Drug: morphine 4 mg Route: IVP; Site: left antecubital; jd3 16:45 Follow up: Response: No adverse reaction; RASS: Alert and Calm (0) jd3 Disposition: 12/14 08:01 Co-signature as Attending Physician, Erwin Domínguez MD I agree with the assessment and [facility] plan of care. Disposition: 12/14/19 15:54 Discharged to Home. Impression: Low back pain, Radiculopathy, lumbar region. - Condition is Stable. - Discharge Instructions: Back Pain, Adult, Musculoskeletal Pain, Heat Therapy. - Prescriptions for meloxicam 15 mg Oral tablet - take 1 tablet by ORAL route once daily As needed; 20 tablet. Robaxin 500 mg Oral Tablet - take 2 tablet by ORAL route every 6 hours As needed; 40 tablet. Medrol (Javier) 4 mg Oral Tablets, Dose Pack - take 1 tablet by ORAL route as directed - follow package instructions; 1 packet. - Medication Reconciliation Form, Thank You Letter, Antibiotic Education, Prescription Opioid Use form. - Follow up: Private Physician; When: 5 - 6 days; Reason: Recheck today's complaints, Continuance of care, Re-evaluation by your physician. - Problem is new. - Symptoms have improved. Signatures: Erwin Domínguez MD MD cha Roszak, Josh, PA PA jr8 Pedro Gonzalez RN RN jd3 Corrections: (The following items were deleted from the chart) 12/13 15:53 15:50 Back: pain, that is moderate, of the low back area, ROM is painful, normal spinal jr8 alignment noted, CVA tenderness, is absent, vertebral tenderness, is not appreciated, Straight leg raises: left lower extremity does not illicit pain, jr8 17:01 15:54 12/14/2019 15:54 Discharged to Home. Impression: Low back pain; Radiculopathy, jd3 lumbar region. Condition is Stable. Forms are Medication Reconciliation Form, Thank You Letter, Antibiotic Education, Prescription Opioid Use. Follow up: Private Physician; When: 5 - 6 days; Reason: Recheck today's complaints, Continuance of care, Re-evaluation by your physician. Problem is new. Symptoms have improved. jr8
[2019-12-14] MEDS ORDERED: MORPHINE 4 MG/ML SYR ONE (15:58)
[2019-12-14 17:25] VITALS: TEMP 98.2
[2019-12-14 17:27] VITALS: O2SAT 100
[2019-12-14 17:28] VITALS: BP 138/89
== END 2019-12-14 17:01 | disposition home or self-care (01) ==
LOC: ER 12:47
DX: M54.16 Radiculopathy, lumbar region (principal); M10.9 Gout, unspecified
CPT/HCPCS: 96365; 96375; 99284; J1100; J2800